=== PATIENT | female | born 1945 | race Caucasian/White ===

== ENCOUNTER 2016-12-21 11:47 | Emergency (ER) | payer OTHER ==
[2016-12-21] MEDS ORDERED: SOLU-MEDROL IM ONE (12:35)
[2016-12-21] MEDS ORDERED: DUONEB (A & A) INH ONE (12:35)
[2016-12-21] MEDS ORDERED: TESSALON PO ONE (12:35)
--- NOTE | 2016-12-21 13:15 | Diag Imaging Result Document ---
PROCEDURE NAME: CHEST-2 VIEWS - 12/21/2016 FRONTAL AND LATERAL CHEST, 2 VIEWS: COMPARISON: Compared to 01/29/2016. FINDINGS: The lungs are well expanded. The heart is not enlarged. The vessels are not distended. There are no infiltrates. No pleural effusions. There are multiple surgical clips in the left axilla and left breast. No lung nodules identified. IMPRESSION: No pneumonia.
--- NOTE | 2016-12-21 13:52 | PROVIDER DOCUMENTATION ---
HPI-Respiratory General - General Chief Complaint: Cough Stated Complaint: COUGHING/WHEEZING Time Seen by Provider: 12/21/16 12:21 Source: patient Allergies/Adverse Reactions: Patient Allergies Allergy/AdvReac Type Severity Reaction Status Date / Time codeine Allergy ITCHING Verified 12/21/16 12:34 diphenhydramine HCl * Allergy ITCHING Verified 12/21/16 12:34 [From Benadryl] Home Medications: Home Medication List Medication Instructions Recorded Confirmed Last Taken Type Albuterol Sulfate Inhaler 2 puff INH Q6H PRN PRN #1 inhaler 01/29/16 12/21/16 Unknown Rx [Ventolin Hfa] Albuterol Sulfate [Albuterol 8.5 gm IH Q4-6H PRN PRN #1 12/21/16 Unknown Rx Sulfate Hfa] hfa.[email or web address] Benzonatate [Tessalon] 100 mg PO TID PRN PRN #20 capsule 12/21/16 Unknown Rx Methylprednisolone [Medrol Dosepak] 4 mg PO DIRECTED #1 package 12/21/16 Unknown Rx - History of Present Illness-Resp Nature of Presenting Problem: This pt presents today c complaints of chronic cough X 1 year. She has had 2 CT scans and PFTs but this persistent cough continues. However, she states that yesterday she was on a trip and there was a lot of dust in the cabin she was in and she believes that this may have caused her cough to worsen. She also reports wheezing but states that this is also chronic. She reports that she just finished a course of antibiotics last week for these symptoms. Denies any CP. No other issues or complaints. Quality of Pain: reports: tightness Severity in ED: reports: moderate Onset/Duration: reports: other (see hpi) Timing: reports: still present Cough Quality/Degree: reports: moderate, dry cough Episode Frequency: chronic episodes Current Respiratory Medication Therapy: Initiated other (symbicort, steroids) Modifying Factors: improves with: exertion, coughing Associated Symptoms: reports: cough, short of breath, wheezing Similar Symptoms Previously?: Yes Recently seen or treated by another doctor?: Yes Review of Systems - Adult - REVIEW OF SYSTEMS - ADULT Constitutional: reports: no symptoms reported. denies: chills, fever Eyes: reports: no symptoms reported. denies: discharge, dry eyes Ears, Nose, Mouth & Throat: reports: no symptoms reported. denies: ear discharge, ear pain Cardiovascular: reports: no symptoms reported. denies: chest pain, edema Respiratory: reports: chronic cough, cough, shortness of breath, wheezing. denies: hemoptysis, pleurisy Gastrointestinal: reports: no symptoms reported. denies: abdominal pain, hematemesis Genitourinary: reports: no symptoms reported. denies: dysuria, discharge Musculoskeletal: reports: no symptoms reported. denies: bone pain, back pain Integumentary: reports: no symptoms reported. denies: hives, hair loss Neurological: reports: no symptoms reported. denies: ataxia, dizziness/vertigo Psychiatric: reports: no symptoms reported. denies: anxiety, anti-depressant use Endocrine: reports: no symptoms reported Hematologic/Lymphatic: reports: no symptoms reported Allergic/Immunologic: reports: no symptoms reported All Other Systems: Reviewed and Negative Past History - Adult - PAST MEDICAL HISTORY-ADULT Review of Records: reports: Old Records Reviewed, Nursing Assessment Review, Medications Reviewed, Social history reviewed & non-contributory. Major Childhood Illnesses: reports: denies history Cardiovascular: reports: HTN, hyperlipidemia Respiratory: reports: denies history Gastrointestinal: reports: denies history Obstetrical/Gynecological: reports: denies history Genitourinary: reports: denies history Musculoskeletal: reports: denies history Neurological: reports: denies history Endocrine/Immune: reports: denies history Other Conditions: reports: other cancer (breast cancer ) - PRIOR SURGERIES/PROCEDURES Surgical/Procedure History: reports: none - IMMUNIZATION STATUS Childhood Immunizations: See Nurse Assessment Flu Vaccine: See Nurse Assessment Physical Exam-General - PHYSICAL EXAM-ADULT Initial Vital Signs Reviewed: Yes - CONSTITUTIONAL General Appearance: alert, mild distress. negative: lethargic, slow to respond - EYES Eyes: PERRL/EOMI, pink conjunctivae - HEAD, EARS, NOSE, MOUTH & THROAT HENMT: normocephalic/atraumatic, moist mucous membranes, normal ENT inspection - NECK Neck: non-tender, full range of motion, supple, normal inspection - RESPIRATORY Respiratory: chest non-tender, no pleuratic chest pain, no accessory muscle use , respiratory distress, decreased breath sounds, accessory muscle use, wheezing , increased rate. negative: crackles, rales, rhonchi, stridor - CARDIOVASCULAR Cardiovascular: normal peripheral pulses, regular rate, rhythm, no edema, no gallop, no JVD, no murmur. negative: bradycardia, tachycardia - GASTROINTESTINAL (ABDOMEN) Abdominal Exam: normal bowel sounds, non tender, soft, no organomegaly, no pulsatile mass - MUSCULOSKELETAL Back Exam: normal inspection, no CVA tenderness, no vertebral tenderness Extremity: normal range of motion, non-tender, normal gait, normal inspection - SKIN Integumentary: normal color, normal turgor, warm/dry - NEUROLOGIC Neurologic: grossly normal, no motor/sensory deficits - PSYCHIATRIC Psych/Mental Status: normal mood/affect, normal thought content, normal thought process, oriented x 3 Progress - PLAN OF CARE/RESULTS Progress/Plan/Lab Results: Orders Category Date Time Status CHEST-2 VIEWS [RAD] Stat Exams 12/21/16 12:23 Draft Albuterol 2.5MG/Ipratrop 0.5MG [Duoneb (A & A)] Med 12/21/16 12:35 Discontinued 3 ml INH NOW ONE Benzonatate [Tessalon] Med 12/21/16 12:35 Discontinued 200 mg PO NOW ONE Methylprednisolone Sod Succ [Solu-Medrol] Med 12/21/16 12:35 Discontinued 80 mg IM NOW ONE Aerosol Treatments Routine Oth 12/21/16 12:35 Completed Aerosol Treatments Stat Oth 12/21/16 12:35 Completed Vital Signs Temp Pulse Resp BP Pulse Ox 12/21/16 13:02 86 16 91 L 12/21/16 11:55 97.7 F 91 H 20 130/68 98 codeine Allergy (Verified 12/21/16 12:34) ITCHING diphenhydramine HCl * [From Benadryl] Allergy (Verified 12/21/16 12:34) ITCHING Albuterol Sulfate Inhaler [Ventolin Hfa] 2 puff INH Q6H PRN PRN #1 inhaler 01/28 Pt is feeling much better. She is now sitting upright in no distress. She does still have some mild expiratory wheezing but symptoms are significantly improved. Currently 100% SaO2 on RA. Her cough is resolved. Will d/c home to f/ u c Dr. Salgado next week. She is in agreement. - XRAY 1 XRAY Study: Chest Comparison with other Films: no changes XRAY Interpretation: stable, nad - CONSULTS/PCP/HOSPITALIST Notification #1 *Consult/PCP/Hospitalist*: Dr. Salgado Time Discussed: 13:52 Consult Disposition: F/U in office Departure - Departure Time of Disposition Order: 13:52 DIAGNOSIS: Chronic coughing, Wheezing Disposition: HOME 01 Certified Medical Emergency: Emergent Condition: Good Additional Instructions: Take medication as prescribed. Follow up with Dr. Salgado next week. Please return to the ER for any new or worsening symptoms. ED Follow Up Instructions: You have been treated by a care provider in the Emergency Department. These instructions are being provided to you so you can have an understanding of how to care for yourself upon discharge. Upon discharge from the Emergency Department, you are responsible for making arrangements for follow-up care by a physician of your choice. Take all prescribed medications as directed. Return to the Emergency Department immediately for any new or worsening symptoms. You may call the Physician Referral phone number at [phone] to obtain a list of Physicians who are taking new patients. Prescriptions: Albuterol Sulfate [Albuterol Sulfate Hfa] 8.5 gm IH Q4-6H PRN PRN #1 hfa.[email or web address] PRN Reason: Wheezing Methylprednisolone [Medrol Dosepak] 4 mg PO DIRECTED #1 package Benzonatate [Tessalon] 100 mg PO TID PRN PRN #20 capsule PRN Reason: Cough Referrals: Lucas Salgado MD [Primary Care Provider] - Attestation - Physician/ JANA Attestation Patient care was provided by Advanced Practice Provider:: Yes Advanced Practice Provider:: Jese Stallworth Advanced Practice Provider documentation review:: The Mid-level provider documentation, treatment plan and medical decision making was reviewed by the physician who agrees with all treatment and medical decision making by the P.
[2016-12-21 14:04] VITALS: BP 114/64
== END 2016-12-21 14:05 | disposition home or self-care (01) ==
LOC: ED 11:47
DX: R05 Cough (principal); R06.2 Wheezing; R06.02 Shortness of breath; I10 Essential (primary) hypertension; E78.5 Hyperlipidemia, unspecified; Z85.3 Personal history of malignant neoplasm of breast
CPT/HCPCS: 71020; 94640; 96372; J2930

== ENCOUNTER 2017-05-08 12:11 | Inpatient (IN) ==
[2017-05-08] MEDS ORDERED: SOLU-MEDROL IV ONE (13:31)
[2017-05-08] MEDS ORDERED: NS NEB INH SCH (13:31)
--- NOTE | 2017-05-08 13:59 | Diag Imaging Result Doc PS360 ---
EXAM: CHEST-2 VIEWS HISTORY: Shortness of breath TECHNIQUE: 12/21/2016 COMPARISON: None. FINDINGS: There are multiple surgical clips overlying the left chest. These were present on the prior exam. The lungs are well expanded. The heart is not enlarged. The vessels are not distended. No pleural effusions. There is increased density in the left apex. IMPRESSION: Increased density in the left apex. Although this may simply be volume averaging, and apical lordotic view is recommended to insure there is no underlying lesion. Electronically signed by Deric Bond 05/08/2017 1:57 PM
[2017-05-08 14:24] LABS: MANUAL DIFF NEEDED? NO
[2017-05-08 14:31] LABS: BASO% 0.7 % (0.0-0.8); EOS# 0.59 X1000 (0.0-0.7); EOS% 7.3 % (0.0-10.0); HEMATOCRIT 43.8 % (37.0-47.0); HEMOGLOBIN 14.5 g/dL (12.0-16.0); IMM GRAN# 0.03 X1000 (0.0-0.04); IMM GRAN% 0.4 % (0.0-0.5); LYMPH# 1.13 X1000 (1.2-3.4); MCHC 33.1 g/dL (33-37); MCV 87.6 FL (81-99); MONO# 0.52 X1000 (0.11-0.59); MONO% 6.5 % (1.7-9.3); MPV 10.2 FL (7.4-10.4); NEUT% 71.1 % (42.2-75.2); PLT 229 X1000 (130-400)
[2017-05-08 15:07] LABS: ALBUMIN 4.2 g/dL (3.5-5.0); CALCIUM 9.7 mg/dL (8.8-10.2); POTASSIUM 4.4 mmol/L (3.5-5.1); TOTAL BILIRUBIN 0.35 mg/dL (0.20-1.00); TOTAL PROTEIN 7.4 g/dL (6.3-8.3)
[2017-05-08] MEDS: ATROVENT NEB INH SCH ×3 (15:17→23:03)
[2017-05-08] MEDS: XOPENEX NEB INH SCH ×3 (15:17→23:03)
--- NOTE | 2017-05-08 15:23 | HISTORY AND PHYSICAL ---
PRIMARY CARE PHYSICIAN: Dr. Lucas Salgado. CHIEF COMPLAINT: Profound shortness of breath. HISTORY OF PRESENT ILLNESS: A 72-year-old white female with past medical history significant for chronic cough with associated asthma, intermittent lower extremity edema, reflux disease, hypertension, hyperlipidemia, left breast cancer, osteoarthritis, and insomnia, who presents for evaluation of above-mentioned symptoms. Current history of present illness began approximately 2 weeks ago. At that time, patient developed acute onset cough, congestion, and wheezing. The patient has attempted interventions since that time including increasing prednisone at 30 mg daily and tapering 10 mg daily until off and increasing frequency of DuoNeb. Unfortunately, despite these interventions, she has developed progressive symptoms. The patient presents to the office today with noted dyspnea. She states she was unable to sleep last night secondary to her profound shortness of breath. She denies fevers, chills, chest pains, palpitations, nausea, and vomiting. Her cough is largely nonproductive. Of note, she did have a sick contact in a nephew approximately 2 weeks ago. Within the last year to 2 years, patient has developed increasing asthmatic symptoms. She has been treated with multiple modalities with intermittent improvement. She currently is followed by Dr. Riddle routinely. Up until this current episode, she had been doing reasonably well. PAST MEDICAL HISTORY: 1. 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 2. Left-sided chest pain status post negative cardiac evaluation in 2008. 3. Chronic cough, likely an asthmatic variant. 4. History of appendectomy associated with her THIERRY/BSO in 1994. 5. Lower extremity edema, intermittent. 6. Reflux disease. 7. Hypertension. 8. Family history of stroke. 9. Family history of coronary artery disease. 10. External hemorrhoids. 11. Hyperlipidemia diagnosed in 1997. 12. 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 Omid Rubio and simultaneous TRAM flap reconstruction by Dr. Barbara Feliciano. The patient developed a recurrence in 2003 and was treated with excision in August and September, followed by XRT in 2004 and chemotherapy. The patient was treated with Arimidex until 2013. 13. Osteoarthritis. 14. Left ovarian cyst status post THIERRY/BSO in 1994. 15. Overweight. 16. History of colonic polyps. 17. History of surgical menopause in 1994. 18. Insomnia. CURRENT MEDICATIONS: 1. Amlodipine 5 mg twice daily. 2. Aspirin 81 mg daily. 3. CoQ10 100 mg daily. 4. Crestor 20 mg at bedtime. 5. DuoNeb 3 times daily as needed. 6. Losartan/hydrochlorothiazide 100/12.5 daily. 7. Nexium 40 mg daily. 8. ProAir HFA as needed. 9. Singulair 10 mg daily. 10. Symbicort 2 puffs twice daily. 11. Zyrtec 10 mg daily. ALLERGIES: Patient states she is allergic to Benadryl which causes a rash, codeine causes a rash, and lisinopril which causes a cough. SOCIAL HISTORY: Patient denies tobacco, alcohol or illicit drug use. 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 She enjoys playing [employer]. She exercises as tolerated. FAMILY HISTORY: Patient's father passed at age 68 secondary to complications of coronary artery bypass grafting. He had a heart attack at age 60, high blood pressure, and hyperlipidemia. Patient's mother passed secondary to complications of lung cancer. She had a history of stroke at age 62. REVIEW OF SYSTEMS: A 12 point review of systems was performed. Pertinent positives and negatives are noted in history present illness. PHYSICAL EXAMINATION: VITAL SIGNS: Temperature 97.8 degrees, heart rate 118, respirations 28, blood pressure is 142/83, O2 saturation 98%. GENERAL: Well nourished, well developed, well developed, in mild respiratory distress. HEENT: Normocephalic, atraumatic. Pupils equal, round, react to light. Extraocular muscles intact. Sclerae anicteric. Guttenberg conjunctivae. Oral and nasopharynx clear without exudate. NECK: Supple. No lymphadenopathy. No thyromegaly. No bruits auscultated. CARDIOVASCULAR: Tachycardic regular rhythm. No significant murmurs, rubs or gallops. PULMONARY: Bilateral wheezing with compromised air movement. ABDOMEN: Soft, nontender. Nondistended positive bowel sounds. EXTREMITIES: Moves all extremities well. No significant clubbing, cyanosis, or edema. DERMATOLOGIC: Evaluation reveals no evidence of rash. LABORATORY DATA: White blood cell count 8.05, hemoglobin 14.5, hematocrit 43.8, platelet count 229,000. CMP and D-dimer are pending. IMAGING: Chest x-ray reveals increased density in the left apex. Although this may simply be volume averaging, an apical lordotic view is recommended to ensure there is no underlying lesion. ASSESSMENT AND PLAN: A 72-year-old, white female with past medical history as noted, who presents for evaluation of profound shortness of breath. On examination, patient does have wheezing bilaterally with compromised air movement. Patient does have a significant history of asthma with multiple exacerbations and chronic cough over the course of the last couple of years. The patient has failed outpatient therapy with bronchodilators and steroids. Patient will be admitted to the hospital for full evaluation and management of this condition. 1. Admit to General Medicine. 2. Acute exacerbation of asthma - As above, patient has failed outpatient therapy. We will initiate IV steroids, bronchodilators, and levofloxacin therapy. We will check blood cultures x2. Will check a sputum culture if able. We will address patient's abnormal CT scan as noted below. We will consult Dr. Riddle as he is aware of patient's case. We will follow her clinical course closely. 3. Hypoxia - In the office, at rest, patient had an oxygen saturation of 90%. We will start patient on oxygen per protocol. We will follow closely. 4. Abnormal chest x-ray - Patient has known scarring in the left apex per previous CT scan. With an increase, I do expect further evaluation is warranted. We will follow up on the D-dimer. We will determine whether a CT scan or CT angiogram is most appropriate. We will plan to order this once further laboratory data is available. 5. Reflux disease - We will continue patient on Nexium therapy. We will ask patient to practice aspiration precautions. We will encourage incentive spirometry q.1 hour while awake. 6. Hypertension - We will continue losartan, hydrochlorothiazide, and amlodipine therapy. We have attempted to discontinue ARB therapy in the past with expectation that this may be exacerbating her cough. Unfortunately this proved ineffective. We will continue this. 7. Hyperlipidemia - We will continue patient on Crestor therapy. 8. Fluid, electrolytes, nutrition - We will monitor electrolytes. Saline lock IV. Regular diet. 9. Prophylaxis - Patient will be placed on subcutaneous Lovenox. cc: Lucas Salgado MD
[2017-05-08 15:35] LABS: ALLEN TEST YES; BE -0.9 mmoll (-3.0-3.0); BLOOD TYPE ARTERIAL; DRAW SITE R RADIAL; METHB 0.6 % (0.0-1.5); O2(CT) 21.1 mL/dL (15.0-23.0); PCO2(98.6) 41 mmHg (35-45); PO2(98.6) 93 mmHg (60-100); SAMPLE BLOOD; SAO2 96.7 % (95.0-100.0); THB 15.6 g/dL (11.5-17.4); pH(98.6) 7.38 (7.35-7.45)
[2017-05-08 15:36] LABS: MODALITY CANNULA
[2017-05-08] MEDS ORDERED: NS 1,000 ML IV SCH (16:38)
[2017-05-08] MEDS: LEVAQUIN 500 MG/D5W 500 MG/100 ML IVPB IV SCH (16:54)
[2017-05-08] MEDS: LOVENOX SUBQ SCH (16:54)
--- NOTE | 2017-05-08 18:46 | Diag Imaging Result Doc PS360 ---
ANGIOGRAM/PULMONARY ARTERIES - 05/08/2017 INDICATION: Shortness of breath/elevated D-dimer/ abnormal CXR TECHNIQUE: Axial CT images were obtained after administering intravenous contrast. Coronal MIP images were generated. A CT dose reduction protocol was used. COMPARISON: 09/11/2016 FINDINGS: There is moderate patient motion artifact. No pulmonary embolism. There is significant chronic bronchitis. There is mucus impaction of several segmental airways in both lower lobes. There is stable pulmonary scarring in the left apex. There is increase in the mild shotty nonspecific mediastinal and bilateral hilar lymph nodes. Heart size is normal. Upper abdominal images are unremarkable. There are some healing lateral right rib fractures, ribs #5 and six. These were not present on the prior exam, but are at least a couple weeks old. IMPRESSION: 1. Negative for pulmonary embolism. 2. Severe chronic bronchitis with mucus impaction of several segmental airways in the lower lobes. 3. Increasing, nonspecific mild mediastinal and hilar adenopathy. 4. Healing right-sided rib fractures. Electronically signed by Ashwin Lopez 05/08/2017 6:44 PM
[2017-05-08] MEDS: SOLU-MEDROL IV SCH (22:00)
[2017-05-08] MEDS: NORVASC PO SCH (22:00)
[2017-05-08] MEDS: TYLENOL PO PRN (22:05)
[2017-05-09] MEDS: XOPENEX NEB INH SCH ×6 (03:25→23:06)
[2017-05-09] MEDS: ATROVENT NEB INH SCH ×6 (03:25→23:06)
--- NOTE | 2017-05-09 04:32 | CONSULTATION ---
DATE OF CONSULTATION: 05/08/2017 REQUESTING PHYSICIAN: Dr. Lucas Salgado. REASON FOR CONSULTATION: Asthma exacerbation. HISTORY OF PRESENT ILLNESS: Ms. Hsu is a 72-year-old white female with cough variant asthma, elevated IgE level (220 international units per mL), history of multiple environmental allergens on immunotherapy, significant eosinophilia when not on steroids (30.5% or 2000 total eosinophils documented on 01/29/2016), who has been followed in my clinic since 02/11/2017. The patient had been maximized on reflux precautions, a leukotriene inhibitor, and an inhaled corticosteroid (higher dose), long-acting beta agonist, an anticholinergic agent, and a short-acting beta agonist. Despite these treatments, patient has recurrent requirements for steroids. The patient is currently being considered for add on therapy such as an anti-IgE antibody treatment or an anti- IL-5 antibody treatment. The patient called Dr. Salgado with a several day history of increased cough and increased shortness of breath. She denies fevers, chills or significant sputum production. PAST MEDICAL HISTORY/PROBLEM LIST: 1. Cough variant asthma, as per above. 2. History of breast cancer x2. 3. Hypertension. 4. Gastroesophageal reflux. 5. Spinal stenosis. 6. Sleep apnea. 7. Status post hysterectomy. 8. Status post appendectomy. 9. Hypertension. 10. Dyslipidemia. 11. Osteoarthritis. SOCIAL HISTORY: She is a never smoker. Does not use recreational drugs. No alcohol use. 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 She has never been exposed to tuberculosis. FAMILY HISTORY: Positive for lung cancer and coronary artery disease. REVIEW OF SYSTEMS: As noted in the HPI. PHYSICAL EXAMINATION: General: Reveals a well-developed, well-nourished white female, resting comfortably. She does appear to be breathless with excessive talking. Vital Signs: Blood pressure 130/64, heart rate 95, respiration rate 20, oxygen saturation 95% on 2 L. HEENT: Pupils are equal and reactive. Oropharynx is clear. Neck: Supple. Chest: Reveals diminished breath sounds, with wheezing on forced exhalation. Cardiac: Regular rate. Normal S1, normal S2. Abdomen: Soft, without hepatosplenomegaly. Extremities: Without edema. LABORATORY STUDIES: Arterial blood gas on 2 L per nasal cannula reveals an increase in Aa gradient at 55, with a pH of 7.38, pCO2 of 41, PO2 of 93. White blood count 8.05, hemoglobin 14.5, platelet count 229,000. Eosinophil percentage 7.3% (patient is on steroids). CT scan of the thorax reveals mucous impaction consistent with asthma exacerbation. No evidence of pulmonary emboli. Mild nonspecific scarring in the left apex, unchanged from 09/11/2016. Nonspecific mediastinal adenopathy. IMPRESSION: A 72-year-old with severe allergic asthma, with elevated IgE levels and elevated eosinophil levels. She has had recurrent steroids despite maximizing her treatment. The patient has been off steroids for less than 2 weeks, and has had another exacerbation. With her elevated IgE level and her allergic asthma, she will likely qualify for an IgE antibody treatment (e.g. Xolair). With her elevated eosinophilic counts, an anti-IL-5 treatment will also be considered (Nucala). PLAN: 1. Continue to treat for asthma exacerbation with nebulizer treatments and IV steroids. 2. Anticipate the addition of an add on therapy, as outlined above. cc: MD Lucas Ramos MD
[2017-05-09] MEDS: SOLU-MEDROL IV SCH ×3 (05:40→21:36)
[2017-05-09 05:59] LABS: MANUAL DIFF NEEDED? NO
[2017-05-09 06:07] LABS: BASO% 0.1 % (0.0-0.8); EOS# 0.01 X1000 (0.0-0.7); EOS% 0.1 % (0.0-10.0); HEMATOCRIT 43.5 % (37.0-47.0); HEMOGLOBIN 14.6 g/dL (12.0-16.0); IMM GRAN# 0.02 X1000 (0.0-0.04); IMM GRAN% 0.3 % (0.0-0.5); LYMPH# 1.01 X1000 (1.2-3.4); LYMPH% 13.4 % (20.5-51.1); MCHC 33.6 g/dL (33-37); MCV 86.5 FL (81-99); MONO# 0.15 X1000 (0.11-0.59); NEUT% 84.1 % (42.2-75.2); PLT 219 X1000 (130-400); RBC 5.03 XMIL (4.2-5.4)
[2017-05-09] MEDS: ASPIRIN PO SCH (10:46)
[2017-05-09] MEDS: COENZYME Q10 PO SCH (10:46)
[2017-05-09] MEDS: SINGULAIR PO SCH (10:46)
[2017-05-09] MEDS: HYZAAR 100/12.5 MG TAB PO SCH (10:46)
[2017-05-09] MEDS: ZYRTEC PO SCH (10:46)
[2017-05-09] MEDS: NEXIUM PO SCH (10:46)
[2017-05-09] MEDS: LEVAQUIN 500 MG/D5W 500 MG/100 ML IVPB IV SCH (14:43)
[2017-05-09] MEDS: LOVENOX SUBQ SCH (14:43)
[2017-05-09] MEDS: NORVASC PO SCH (21:39)
[2017-05-10] MEDS: ATROVENT NEB INH SCH ×5 (03:37→21:32)
[2017-05-10] MEDS: XOPENEX NEB INH SCH ×6 (03:38→23:07)
[2017-05-10] MEDS: TYLENOL PO PRN ×2 (04:23→22:43)
[2017-05-10] MEDS: SOLU-MEDROL IV SCH ×2 (06:06→19:15)
[2017-05-10] MEDS: NEXIUM PO SCH (11:30)
[2017-05-10] MEDS: SINGULAIR PO SCH (11:31)
[2017-05-10] MEDS: HYZAAR 100/12.5 MG TAB PO SCH (11:31)
[2017-05-10] MEDS: ZYRTEC PO SCH (11:31)
[2017-05-10] MEDS: COENZYME Q10 PO SCH (11:31)
[2017-05-10] MEDS: ASPIRIN PO SCH (11:31)
[2017-05-10] MEDS: LEVAQUIN 500 MG/D5W 500 MG/100 ML IVPB IV SCH (18:57)
[2017-05-10] MEDS: LOVENOX SUBQ SCH (18:59)
[2017-05-10] MEDS: NORVASC PO SCH (20:50)
[2017-05-11] MEDS: SOLU-MEDROL IV SCH ×3 (02:44→18:16)
[2017-05-11] MEDS: ATROVENT NEB INH SCH ×5 (03:24→21:39)
[2017-05-11] MEDS: XOPENEX NEB INH SCH ×6 (03:25→23:27)
[2017-05-11] MEDS: ZYRTEC PO SCH (08:35)
[2017-05-11] MEDS: HYZAAR 100/12.5 MG TAB PO SCH (08:35)
[2017-05-11] MEDS: COENZYME Q10 PO SCH (08:35)
[2017-05-11] MEDS: ASPIRIN PO SCH (08:35)
[2017-05-11] MEDS: NEXIUM PO SCH (08:35)
[2017-05-11] MEDS: SINGULAIR PO SCH (08:35)
[2017-05-11] MEDS ORDERED: DULCOLAX PR PRN ×2 (09:17→09:21)
[2017-05-11] MEDS ORDERED: MILK OF MAGNESIA PO ONE (09:17)
[2017-05-11] MEDS: COLACE PO PRN (09:42)
[2017-05-11] MEDS: MAG-OX PO SCH ×2 (09:42→20:39)
[2017-05-11] MEDS: LOVENOX SUBQ SCH (14:20)
[2017-05-11] MEDS: LEVAQUIN 500 MG/D5W 500 MG/100 ML IVPB IV SCH (14:20)
[2017-05-11] MEDS: NORVASC PO SCH (20:39)
[2017-05-12] MEDS: XOPENEX NEB INH SCH ×6 (03:19→23:15)
[2017-05-12] MEDS: ATROVENT NEB INH SCH ×4 (03:19→21:34)
[2017-05-12] MEDS: SOLU-MEDROL IV SCH ×3 (05:50→21:46)
[2017-05-12 06:34] LABS: AGAP 13; BUN 24 mg/dL (8-22); CALCIUM 9.7 mg/dL (8.8-10.2); CHLORIDE 93 mmol/L (98-107); COSMO 270; MAGNESIUM 2.4 mg/dL (1.5-2.7); POTASSIUM 4.1 mmol/L (3.5-5.1); SODIUM 132 mmol/L (136-145); TCO2 26 mmol/L (25-35)
[2017-05-12] MEDS: MAG-OX PO SCH ×2 (08:33→21:46)
[2017-05-12] MEDS: ZYRTEC PO SCH (08:34)
[2017-05-12] MEDS: ASPIRIN PO SCH (08:34)
[2017-05-12] MEDS: SINGULAIR PO SCH (08:34)
[2017-05-12] MEDS: NEXIUM PO SCH (08:34)
[2017-05-12] MEDS: COENZYME Q10 PO SCH (08:34)
[2017-05-12] MEDS: HYZAAR 100/12.5 MG TAB PO SCH (08:35)
--- NOTE | 2017-05-12 09:08 | PROGRESS NOTE ---
DATE: 05/12/2017 SUBJECTIVE: Ms. Hsu is feeling better and breathing better, even better than yesterday. Still has nasal cannula on, sitting up in a chair, comfortable. OBJECTIVE: Temperature is 98.7, pulse 84, respirations 18, blood pressure 103/53. Lungs: Clear in all lung valenzuela. Cardiovascular: Regular rate and rhythm without murmur or S3. Abdomen: Soft. Skin: Warm and dry. Urine output was 1400 mL. DIAGNOSTIC DATA: White count is 7550, hematocrit 43, platelet count 219,000. Chemistry shows sodium 132, potassium 4.1, chloride 93, bicarb 26, BUN is 24, creatinine 0.9. B12 was 1246. ASSESSMENT AND PLAN: 1. Elevated IgE level, elevated eosinophil level, current steroids. She has had recurrent steroids despite maximizing treatment. The patient has been off steroids for 2 weeks, had another exacerbation with elevated IgE level and her allergic asthma. She would like qualify for some IgE antibiotic treatment which Dr. Riddle is pursuing. Clinically much better, comfortable breathing, moving air better. Hopefully home soon. We will see if we can wean her off her O2. 2. Review of her orders, I do not see any change. cc: MD Lucas Mcfarland MD
--- NOTE | 2017-05-12 09:44 | PROGRESS NOTE ---
DATE: 05/11/2017 SUBJECTIVE: She states she is breathing better but not back to where she needs to be yet. OBJECTIVE: Her temperature is 98.0 degrees, pulse 94, respirations 18, blood pressure 110/63. Lungs are clear in all lung valenzuela, anterolateral. No wheezing. No prolongation of expiratory phase at this point. Abdomen soft, nontender, nondistended. Skin is warm and dry. Urine output is 2200. LABORATORY DATA: White count 7550, hematocrit 43, platelet count 219,000. I reviewed electrolytes from 05/08/2017. Note that tryptase was drawn and it was 5.7, so it was less than 11. ASSESSMENT AND PLAN: 1. A 72-year-old with allergic asthma, elevated IgE levels, and elevated eosinophils levels. She has had recurrent steroids despite maximizing her treatment, and she has had a recurrence even though on maximum steroids. She has been off steroids for less than 2 weeks and other exacerbation. Elevated IgE level and allergic asthma qualify for an IgE antibody treatment, Xolair, and considering nuclear per Dr. Riddle. On review of her orders, I do not see any change at this point. She is on coenzyme Q10 or ubidecarenone, and she is taking 100 mg daily. She is on Singulair 10 mg a day, Methylprednisone 40 mg IV q. 8, Hyzaar and hydrochlorothiazide combination. She has taken 100-12.5 one a day. She is on Levaquin 500 mg IV daily, levalbuterol nebulizer, ipratropium nebulizer, Zyrtec 10 mg daily, aspirin 81 mg a day, Norvasc 5 mg at bedtime. 2. Complains of constipation, so we will see if we can put her back. We will give her some Milk of Magnesia. I think she was taking some stool softeners at home. We will see if we can put her on some Colace twice a day and add Milk of Magnesia. cc: MD Lucas Mcfarland MD
[2017-05-12] MEDS: COLACE PO PRN (09:50)
[2017-05-12] MEDS: LOVENOX SUBQ SCH (12:52)
[2017-05-12] MEDS: LEVAQUIN 500 MG/D5W 500 MG/100 ML IVPB IV SCH (12:52)
[2017-05-12] MEDS: NORVASC PO SCH (21:47)
[2017-05-13] MEDS: XOPENEX NEB INH SCH ×6 (03:45→23:12)
[2017-05-13] MEDS: ATROVENT NEB INH SCH ×4 (03:45→19:18)
[2017-05-13] MEDS: SOLU-MEDROL IV SCH (05:11)
[2017-05-13] MEDS: HYZAAR 100/12.5 MG TAB PO SCH (09:18)
[2017-05-13] MEDS: ZYRTEC PO SCH (09:18)
[2017-05-13] MEDS: COENZYME Q10 PO SCH (09:18)
[2017-05-13] MEDS: ASPIRIN PO SCH (09:19)
[2017-05-13] MEDS: NEXIUM PO SCH (09:19)
[2017-05-13] MEDS: MAG-OX PO SCH ×2 (09:19→20:59)
[2017-05-13] MEDS: SINGULAIR PO SCH (09:19)
[2017-05-13] MEDS: LEVAQUIN 500 MG/D5W 500 MG/100 ML IVPB IV SCH (14:06)
[2017-05-13] MEDS: TESSALON PO SCH ×2 (14:06→19:53)
[2017-05-13] MEDS: LOVENOX SUBQ SCH (14:06)
[2017-05-13] MEDS ORDERED: ROBITUSSIN PO PRN (18:26)
[2017-05-13] MEDS: NORVASC PO SCH ×2 (20:59→21:00)
[2017-05-13] MEDS ORDERED: PREDNISONE PO SCH (21:00)
[2017-05-14] MEDS: XOPENEX NEB INH SCH ×5 (03:49→19:29)
[2017-05-14] MEDS: ATROVENT NEB INH SCH ×4 (03:49→15:15)
[2017-05-14] MEDS ORDERED: PREDNISONE PO ONE (08:35)
[2017-05-14] MEDS: TESSALON PO SCH ×2 (08:42→15:03)
[2017-05-14] MEDS: COENZYME Q10 PO SCH (08:42)
[2017-05-14] MEDS: MAG-OX PO SCH (08:42)
[2017-05-14] MEDS: ASPIRIN PO SCH (08:42)
[2017-05-14] MEDS: NEXIUM PO SCH (08:43)
[2017-05-14] MEDS: ZYRTEC PO SCH (08:43)
[2017-05-14] MEDS: SINGULAIR PO SCH (08:43)
[2017-05-14] MEDS: HYZAAR 100/12.5 MG TAB PO SCH (11:37)
[2017-05-14] MEDS: LEVAQUIN 500 MG/D5W 500 MG/100 ML IVPB IV SCH (12:53)
[2017-05-14] MEDS: LOVENOX SUBQ SCH ×2 (12:53→15:02)
[2017-05-14 15:31] VITALS: BP 107/52
--- NOTE | 2017-05-14 23:39 | DISCHARGE SUMMARY ---
ADMISSION DATE: 05/08/2017 DISCHARGE DATE: 05/14/2017 ADMISSION DIAGNOSIS: Shortness of breath. DISCHARGE DIAGNOSES: 1. Acute exacerbation of asthma, outpatient failure. 2. Hypoxia, resolved. 3. Reflux disease, present on arrival. 4. Hypertension, present on arrival. 5. Hyperlipidemia, present on arrival. CONSULTATIONS: Dr. Riddle with Pulmonary Medicine was consulted for further evaluation and management of acute exacerbation of chronic asthma. PROCEDURES: A CT pulmonary angiogram was performed on 05/08/2017 which revealed negative for pulmonary embolism. Severe chronic bronchitis with mucus impaction of several segmental airways in the lower lobes. Increasing, nonspecific mild mediastinal and hilar adenopathy. Healing right- sided rib fractures. HISTORY AND PHYSICAL EXAMINATION: See admit note. PHYSICAL EXAMINATION PRIOR TO DISCHARGE: Vital Signs: Temperature 98.2 degrees, heart rate 91, respirations 24, blood pressure is 107/52. General: Well nourished, well developed, in no acute distress. Cardiovascular: Regular rate and rhythm. No significant murmurs, rubs, or gallops. Pulmonary: Occasional wheeze, adequate air movement. Abdomen: Soft, nontender, nondistended. Positive bowel sounds. Extremities: Moves all extremities well. No significant clubbing, cyanosis, or edema. Skin: Dermatologic evaluation reveals no evidence of rash. LABORATORY DATA PRIOR TO DISCHARGE: None. HOSPITAL COURSE: The patient was admitted as per history and physical examination. Hospital course per condition is as follows. 1. Acute exacerbation of chronic asthma-the patient has developed significant asthmatic symptoms over the course of the last 1-2 years. Patient is followed as an outpatient by Dr. Riddle. She has been treated with optimum medical management. Unfortunately, patient developed significant shortness of breath. Despite aggressive outpatient intervention, she required inpatient hospitalization. Her course was prolonged secondary to a slow response. She was initially placed on bronchodilators, IV levofloxacin and IV Solu-Medrol. Over the course of hospitalization, patient's steroids were slowly tapered. At time of discharge, patient was tolerating p.o. Patient will be discharged on aggressive of prednisone taper with 60 mg for 3 days followed by 50 mg for 3 days, followed by 40 mg daily for 3 days, followed by 30 mg daily for 3 days, followed by 20 mg daily. Patient will be followed closely as an outpatient by Dr. Riddle. At present time, arrangements for Xolair are being pursued. 2. Hypoxia-upon admission, patient was noted to have hypoxia at rest. Patient was treated with oxygen therapy throughout hospitalization. At time of discharge her oxygenation was adequate on room air. This will be followed as an outpatient as well. 3. Reflux disease-patient was continued on Nexium therapy while hospitalized. She tolerated this well. 4. Hypertension-patient's blood pressure remains adequately controlled with her current regimen while hospitalized. 5. Hyperlipidemia-patient was continued on Crestor therapy. 6. Weakness/fatigue-this likely is secondary to her acute illness. For now, we will follow. DISCHARGE CONDITION: Good. DISPOSITION: Discharge to home. MEDICATIONS: 1. Acetaminophen 650 mg every 4 hours as needed. 2. Aspirin 81 mg daily. 3. Z-Pillo as directed. 4. Zyrtec 10 mg daily. 5. Colace 100 mg twice daily as needed. 6. Losartan/hydrochlorothiazide 100/12.5 daily. 7. Magnesium oxide 800 mg twice daily. 8. Singulair 10 mg daily. 9. Coenzyme Q10 100 mg daily. 10. Mucinex DM twice daily. 11. Amlodipine 5 mg at bedtime. 12. Prednisone taper starting 60 mg for 3 days decreasing 10 mg every 3 days until 20 mg daily is reached and thereafter, she will continue 20 mg daily. FOLLOWUP: The patient to follow with me in 1-2 weeks. cc: Lucas Salgado MD
[2017-05-15] MEDS ORDERED: PREDNISONE PO SCH (09:00)
== END 2017-05-14 20:00 | disposition home or self-care (01) ==
LOC: DIRADM 12:11 → 4N 13:19
PROVIDERS: ADMIT Internal Medicine; ATTEND Internal Medicine

== ENCOUNTER 2019-04-04 17:45 | Inpatient (IN) ==
[2019-04-04] MEDS ORDERED: NS 1,000 ML IV ONE ×3 (18:11→18:12)
--- NOTE | 2019-04-04 18:45 | Diag Imaging Result Doc PS360 ---
EXAM: CHEST-2 VIEWS HISTORY: fever TECHNIQUE: Chest two views COMPARISON: 05/08/2017 FINDINGS: The lungs are well expanded. The heart is not enlarged. The vessels are not distended. There are no infiltrates. No pleural effusions. There are surgical clips in the left axilla. No change in the scarring in the left apex. No lung nodules identified. IMPRESSION: No pneumonia. Electronically signed by Deric Bond 04/04/2019 6:43 PM
--- NOTE | 2019-04-04 18:53 | PROVIDER DOCUMENTATION ---
This chart was entered by Connie Sapp Scribe, acting as scribe for Bg Setphens DO. HPI-General Adult - General Source: patient - History of Present Illness -Gen Adult Nature of Presenting Problems: Pt is 74/F presenting to ED w/ fever that has been present for the last 2 days, it has run up to 104.5 at home and has been somewhat controlled w/ Tylenol. Pt sts that the only other symptoms she has had has been a runny nose. Location of Pain/Injury: reports: generalized Pain Radiation: reports: no radiation Quality of Pain: reports: none Severity: reports: mild Onset/Duration: reports: 2 days ago Timing: reports: still present Context/Activities at Onset: reports: none Modifying Factors: improves with: nothing Associated Symptoms: reports: cough, EENT symptoms, fever/chills. denies: back/neck pain, nausea, vomiting Similar Symptoms Previously?: No Recently seen or treated by another doctor?: No <Bg Stephens - Last Filed: 04/04/19 18:52> <Dawn Fofana - Last Filed: 04/04/19 22:53> - General Chief Complaint: Fever Stated Complaint: WEAKNESS,DIZZINESS Time Seen by Provider: 04/04/19 17:59 Allergies/Adverse Reactions: Patient Allergies Allergy/AdvReac Type Severity Reaction Status Date / Time codeine Allergy ITCHING Verified 12/21/16 12:34 diphenhydramine HCl * Allergy ITCHING Verified 12/21/16 12:34 [From [facility]] Home Medications: Home Medication List Medication Instructions Recorded Confirmed Last Taken Type Acetaminophen [Tylenol] 650 mg PO Q4H PRN PRN #0 tablet 05/14/17 Unknown Rx Amlodipine [Norvasc] 5 mg PO QHS tablet 05/14/17 Unknown Rx Aspirin 81 mg PO DAILY chewtab 05/14/17 Unknown Rx Azithromycin [Zithromax Z-Pillo] 250 mg PO DIRECTED #1 pkg 05/14/17 Unknown Rx Cetirizine [Zyrtec] 10 mg PO DAILY tablet 05/14/17 Unknown Rx Docusate Sodium [Colace] 100 mg PO BID PRN PRN #0 capsule 05/14/17 Unknown Rx Guaifenesin/Dm E.r. [Mucinex Dm] 1 each PO BID #1 tablet 05/14/17 Unknown Rx Losartan/Hctz [Hyzaar 100/12.5 mg 1 each PO DAILY tablet 05/14/17 Unknown Rx Tab] Magnesium Oxide [Mag-Ox] 800 mg PO BID tablet 05/14/17 Unknown Rx Montelukast [Singulair] 10 mg PO DAILY tablet 05/14/17 Unknown Rx Prednisone See Taper PO DIRECTED #45 tablet 05/14/17 Unknown Rx Ubidecarenone [Coenzyme Q10] 100 mg PO DAILY capsule 05/14/17 Unknown Rx Review of Systems - Adult - REVIEW OF SYSTEMS - ADULT Constitutional: reports: chills, fever Eyes: reports: no symptoms reported Ears, Nose, Mouth & Throat: reports: no symptoms reported Cardiovascular: reports: no symptoms reported. denies: chest pain Respiratory: reports: cough. denies: shortness of breath, wheezing Gastrointestinal: reports: no symptoms reported. denies: abdominal pain, nausea, vomiting Genitourinary: reports: no symptoms reported Musculoskeletal: reports: no symptoms reported Integumentary: reports: no symptoms reported Neurological: denies: dizziness/vertigo, headache/migraines Psychiatric: reports: no symptoms reported Endocrine: reports: no symptoms reported Hematologic/Lymphatic: reports: no symptoms reported Allergic/Immunologic: reports: no symptoms reported All Other Systems: Reviewed and Negative <Bg Stephens - Last Filed: 04/04/19 18:52> Past History - Adult - PAST MEDICAL HISTORY-ADULT Review of Records: reports: Old Records Reviewed, Nursing Assessment Review, Medications Reviewed, Social history reviewed & non-contributory. Major Childhood Illnesses: reports: denies history Cardiovascular: reports: HTN, hyperlipidemia Respiratory: reports: denies history Gastrointestinal: reports: denies history Obstetrical/Gynecological: reports: denies history Genitourinary: reports: denies history Musculoskeletal: reports: denies history Neurological: reports: denies history Endocrine/Immune: reports: denies history Other Conditions: reports: other cancer (breast cancer ) - PRIOR SURGERIES/PROCEDURES Surgical/Procedure History: reports: none - IMMUNIZATION STATUS Childhood Immunizations: See Nurse Assessment Flu Vaccine: See Nurse Assessment - SOCIAL HISTORY Smoking: denies, non-smoker Substance Use: none/never Alcohol Use Frequency: never Living Situation: family <Bg Stephens - Last Filed: 04/04/19 18:52> Physical Exam-General - PHYSICAL EXAM-ADULT Initial Vital Signs Reviewed: Yes - CONSTITUTIONAL General Appearance: appears well, alert, no apparent distress - EYES Eyes: PERRL/EOMI, pink conjunctivae - HEAD, EARS, NOSE, MOUTH & THROAT HENMT: normocephalic/atraumatic, moist mucous membranes, normal ENT inspection, TMs normal, pharynx normal - NECK Neck: non-tender, full range of motion, supple, normal inspection - RESPIRATORY Respiratory: lungs clear - CARDIOVASCULAR Cardiovascular: regular rate, rhythm - GASTROINTESTINAL (ABDOMEN) Abdominal Exam: normal bowel sounds, non tender, soft - LYMPHATIC Lymphatic: no adenopathy - MUSCULOSKELETAL Back Exam: normal inspection, no CVA tenderness, no vertebral tenderness Extremity: normal range of motion, non-tender, normal gait, normal inspection - SKIN Integumentary: warm/dry - NEUROLOGIC Neurologic: grossly normal - PSYCHIATRIC Psych/Mental Status: normal mood/affect, normal thought content, normal thought process, oriented x 3 <Bg Stephens - Last Filed: 04/04/19 18:52> Progress - PLAN OF CARE/RESULTS Progress/Plan/Lab Results: Vital Signs - 8 hr 04/04/19 17:50 Temperature 100.5 F H Pulse Rate 112 H Respiratory Rate 26 H Blood Pressure 81/52 O2 Sat by Pulse Oximetry 90 L - CHANGE OF SHIFT REPORT (ED Provider) 1 Report Given and Care Transferred to:: Dr. Fofana Time of Transfer: 17:00 <Bg Stephens - Last Filed: 04/04/19 18:52> - PLAN OF CARE/RESULTS Progress/Plan/Lab Results: Vital Signs - 8 hr 04/04/19 17:50 Temperature 100.5 F H Pulse Rate 112 H Respiratory Rate 26 H Blood Pressure 81/52 O2 Sat by Pulse Oximetry 90 L 04/04/19 19:50 Influenza Screen - Final Nasopharyngeal Laboratory Results - last 24 hr 04/04/19 04/04/19 04/04/19 19:20 19:35 19:35 WBC 10.03 RBC 4.73 Hgb 13.6 Hct 40.0 MCV 84.6 MCH 28.8 MCHC 34.0 RDW Std Deviation 15.0 H Plt Count 137 MPV 11.0 H Immature Gran % (Auto) 1.3 H Neut % (Auto) 83.6 H Lymph % (Auto) 7.1 L Waldo % (Auto) 7.1 Eos % (Auto) 0.8 Baso % (Auto) 0.1 Immature Gran # (Auto) 0.13 H Neut # (Auto) 8.39 H Lymph # (Auto) 0.71 L Waldo # (Auto) 0.71 H Eos # (Auto) 0.08 Baso # (Auto) 0.01 PT INR PTT (Actin FS) Sodium 135 L Potassium 3.4 L Chloride 101 Carbon Dioxide 22 L Anion Gap 12 BUN 36 H Creatinine 1.7 H Estimated GFR/1.73 m2 29 BUN/Creatinine Ratio 21 Glucose 118 H Calculated Osmolality 280 Calcium 9.0 Total Bilirubin 0.69 AST 19 ALT 17 Alkaline Phosphatase 126 H Creatine Kinase Troponin T Total Protein 6.3 Albumin 3.2 L Globulin 3.1 Albumin/Globulin Ratio 1.0 Plasma Lactate Urine Source CLEAN CATCH Urine Color YELLOW Urine Turbidity HAZY Urine pH 6.5 Ur Specific Chester 1.008 Urine Protein 50 A Ur Glucose (Stick) NEGATIVE Ur Ketones (Stick) NEGATIVE Urine Blood SMALL A Urine Nitrite POSITIVE A Urine Bilirubin NEGATIVE Urobilinogen Dipstick NORMAL Urine Leukocytes LARGE A Urine WBC (Auto) TNTC A Urine RBC (Auto) <10 U Epithel Cells (Auto) <10 Urine Bacteria (Auto) 4+ 04/04/19 04/04/19 04/04/19 19:35 19:35 19:35 WBC RBC Hgb Hct MCV MCH MCHC RDW Std Deviation Plt Count MPV Immature Gran % (Auto) Neut % (Auto) Lymph % (Auto) Waldo % (Auto) Eos % (Auto) Baso % (Auto) Immature Gran # (Auto) Neut # (Auto) Lymph # (Auto) Waldo # (Auto) Eos # (Auto) Baso # (Auto) PT 14.0 INR 1.00 PTT (Actin FS) 28.7 Sodium Potassium Chloride Carbon Dioxide Anion Gap BUN Creatinine Estimated GFR/1.73 m2 BUN/Creatinine Ratio Glucose Calculated Osmolality Calcium Total Bilirubin AST ALT Alkaline Phosphatase Creatine Kinase 43 Troponin T Total Protein Albumin Globulin Albumin/Globulin Ratio Plasma Lactate 1.5 Urine Source Urine Color Urine Turbidity Urine pH Ur Specific Chester Urine Protein Ur Glucose (Stick) Ur Ketones (Stick) Urine Blood Urine Nitrite Urine Bilirubin Urobilinogen Dipstick Urine Leukocytes Urine WBC (Auto) Urine RBC (Auto) U Epithel Cells (Auto) Urine Bacteria (Auto) 04/04/19 19:35 WBC RBC Hgb Hct MCV MCH MCHC RDW Std Deviation Plt Count MPV Immature Gran % (Auto) Neut % (Auto) Lymph % (Auto) Waldo % (Auto) Eos % (Auto) Baso % (Auto) Immature Gran # (Auto) Neut # (Auto) Lymph # (Auto) Waldo # (Auto) Eos # (Auto) Baso # (Auto) PT INR PTT (Actin FS) Sodium Potassium Chloride Carbon Dioxide Anion Gap BUN Creatinine Estimated GFR/1.73 m2 BUN/Creatinine Ratio Glucose Calculated Osmolality Calcium Total Bilirubin AST ALT Alkaline Phosphatase Creatine Kinase Troponin T < 0.010 Total Protein Albumin Globulin Albumin/Globulin Ratio Plasma Lactate Urine Source Urine Color Urine Turbidity Urine pH Ur Specific Chester Urine Protein Ur Glucose (Stick) Ur Ketones (Stick) Urine Blood Urine Nitrite Urine Bilirubin Urobilinogen Dipstick Urine Leukocytes Urine WBC (Auto) Urine RBC (Auto) U Epithel Cells (Auto) Urine Bacteria (Auto) Orders Category Date Time Status Cardiac Monitoring DIRECTED Care 04/04/19 18:09 Active IV Insertion ORDERED Care 04/04/19 18:09 Active Notify MD of + Sepsis Screen NOW Care 04/04/19 18:09 Active Notify Physician As Ordered Care 04/04/19 18:09 Active CHEST-2 VIEWS [RAD] Stat Exams 04/04/19 18:07 Completed BLOOD CULTURE [BLDCUL] Stat Lab 04/04/19 19:35 Results CBC WITH ELECTRONIC DIFF [HEME] Stat Lab 04/04/19 19:35 Completed CK PROFILE [SP CHEM] Stat Lab 04/04/19 19:35 Completed COMPREHENSIVE METABOLIC PANEL [CHEM] Stat Lab 04/04/19 19:35 Completed INFLUENZA SCREEN A/B Stat Lab 04/04/19 19:50 Completed LACTATE, PLASMA [CHEM] Lab 04/04/19 21:15 Uncollected LACTATE, PLASMA [CHEM] Lab 04/05/19 00:15 Uncollected LACTATE, PLASMA [CHEM] Q3H Lab 04/04/19 19:35 Completed PROTIME WITH INR [COAG] Stat Lab 04/04/19 19:35 Completed PTT [COAG] Stat Lab 04/04/19 19:35 Completed TROPONIN T Stat Lab 04/04/19 19:35 Completed UA NIMS W/REFLEX CULT [URINALYSIS] Stat Lab 04/04/19 19:20 Completed 0.9% Sodium Chloride Inj [Ns] 1,000 ml Med 04/04/19 18:11 Discontinued IV 999 mls/hr 0.9% Sodium Chloride Inj [Ns] 1,000 ml Med 04/04/19 18:11 Discontinued IV 999 mls/hr 0.9% Sodium Chloride Inj [Ns] 1,000 ml Med 04/04/19 18:12 Discontinued IV 999 mls/hr Acetaminophen [Tylenol] Med 04/04/19 22:21 Discontinued 1,000 mg PO NOW ONE CefTRIAXONE [Rocephin] 1 gm Med 04/04/19 22:43 Active 0.9% Sodium Chloride Inj [Ns] 50 ml IV NOW Oxygen Device Stat Oth 04/04/19 18:09 Active Patient signed out to me at shift change pending labs and dispo. Patient with UTI, RIVERA and slight hypokalemia. LA normal. Repeat pending. GIven 3L NS in the ED. Spoke to patient about admission and agrees. Spoke to Dr Schulte who accepted patient for admission. Further orders to be placed by hospitalist team Result Diagrams: 04/04/19 19:35 04/04/19 19:35 - CONSULTS/PCP/HOSPITALIST Notification #1 *Consult/PCP/Hospitalist*: Dr Schulte Time Discussed: 22:49 Consult Disposition: Admit <Dawn Fofana - Last Filed: 04/04/19 22:53> Departure <Bg Stephens - Last Filed: 04/04/19 18:52> - Departure Date of Disposition Decision: 04/04/19 Time of Disposition Decision: 22:49 Certified Medical Emergency: Emergent - Critical Care Note This patient required my direct & personal management of CC.: Yes Total Time (mins): 75 Critical Care Statement: This patient required my direct personal management to treat or rule out processes, the absence of which, could potentiallly result in sudden, clinically significant life or limb threatening deterioration. <Dawn Fofana - Last Filed: 04/04/19 22:53> - Departure DIAGNOSIS: Hypokalemia, RIVERA (acute kidney injury), Sepsis UTI (urinary tract infection) Qualifiers: Urinary tract infection type: acute cystitis Hematuria presence: without hematuria Qualified Code(s): N30.00 - Acute cystitis without hematuria Fever Qualifiers: Encounter type: initial encounter Disposition: ADMITTED INPATIENT 09 Condition: Stable Referrals and Follow-Ups: Lucas Salgado MD [Primary Care Provider] - Attestation - Physician/ JANA Attestation Patient care was provided by Advanced Practice Provider:: No The physician spent face to face time with patient:: Yes Advanced Practice Provider documentation review:: Supervising physician onsite and consulted in the evaluation and care of this patient. The physician did have a face to face encounter with the patient. <Bg Stephens - Last Filed: 04/04/19 18:52> This chart was documented by the indicated scribe, (Connie Sapp, Curt) and accurately reflects the services I performed and decisions made by , Bg Stephens, , as attested by the provider's signature.
[2019-04-04 20:11] LABS: ALBUMIN 3.2 g/dL (3.5-5.0); CREATININE 1.7 mg/dL (0.5-0.9); POTASSIUM 3.4 mmol/L (3.5-5.1); TOTAL BILIRUBIN 0.69 mg/dL (0.20-1.00); TOTAL PROTEIN 6.3 g/dL (6.3-8.3)
[2019-04-04 20:13] LABS: BASO# 0.01 X1000 (0.0-0.2); BASO% 0.1 % (0.0-0.8); EOS# 0.08 X1000 (0.0-0.7); EOS% 0.8 % (0.0-10.0); HEMOGLOBIN 13.6 g/dL (12.0-16.0); IMM GRAN# 0.13 X1000 (0.0-0.04); IMM GRAN% 1.3 % (0.0-0.5); LYMPH# 0.71 X1000 (1.2-3.4); LYMPH% 7.1 % (20.5-51.1); MCH 28.8 PG (27-31); MCV 84.6 FL (81-99); MONO# 0.71 X1000 (0.11-0.59); MONO% 7.1 % (1.7-9.3); NEUT# 8.39 X1000 (1.4-6.5); NEUT% 83.6 % (42.2-75.2); PLT 137 X1000 (130-400); RBC 4.73 XMIL (4.2-5.4); WBC 10.03 X1000 (4.8-10.8)
[2019-04-04 20:17] LABS: PTT 28.7 Seconds (22.3-41.8)
[2019-04-04] MEDS ORDERED: TYLENOL PO ONE (22:21)
[2019-04-04 22:33] LABS: URINE SOURCE CLEAN CATCH
[2019-04-04 22:40] LABS: BILIRUBIN URINE NEGATIVE (NEGATIVE); BLOOD URINE SMALL (NEGATIVE); COLOR YELLOW; GLUCOSE URINE NEGATIVE (NEGATIVE); KETONE URINE NEGATIVE (NEGATIVE); LEUKOCYTES URINE LARGE (NEGATIVE); NITRITE URINE POSITIVE (NEGATIVE); PH URINE 6.5; PROTEIN URINE 50 mg/dL (NEGATIVE); SP GRAVITY URINE 1.008; TURBIDITY URINE HAZY (CLEAR); UR EPITHELIAL CELLS <10 /HPF (<10); URINE BACTERIA 4+ /HPF; URINE RBC <10 /HPF (<10); URINE WBC TNTC /HPF (<10); UROBILINOGEN URINE NORMAL (NORMAL)
[2019-04-04] MEDS ORDERED: ROCEPHIN 1 GM in NS 50 ML IV ONE (22:43)
[2019-04-04] MEDS ORDERED: NS 100 ML IV ONE (22:53)
[2019-04-04] MEDS ORDERED: KLOR-CON PO ONE (22:56)
--- NOTE | 2019-04-04 23:57 | HISTORY AND PHYSICAL ---
PRIMARY CARE PHYSICIAN: Dr. Lucas Salgado. CHIEF COMPLAINT: Fever, chills x4 days. HISTORY OF PRESENTING ILLNESS: A 74-year-old elderly female with a history of asthma, hyperlipidemia and hypertension, who presented to the emergency department with 4-day history of having fevers and chills. She states that she was not feeling well and subsequently she had come to the emergency department. In the ED she was evaluated. She had UA drawn which did show that she did have a UTI. Due to her presenting symptoms, it was thought that she would need admission for further management. At the time of my examination, the patient denied any headache, nausea, vomiting, diarrhea, chest pain, shortness of breath, hemoptysis or weight changes, but complained of fever and chills. PAST MEDICAL HISTORY: Includes asthma, breast cancer, hyperlipidemia and hypertension. PAST SURGICAL HISTORY: Left knee replacement, left mastectomy, hysterectomy, appendectomy. ALLERGIES: Codeine and Benadryl. MEDICATIONS: Current medications include Norvasc 5 mg p.o. at bedtime; aspirin 81 mg p.o. daily; losartan/hydrochlorothiazide 100/12.5 one p.o. daily; Singulair 10 mg p.o. daily; coenzyme Q10, 100 mg p.o. daily. SOCIAL HISTORY: No history of smoking, alcohol or illicit drug use. FAMILY HISTORY: Positive for coronary disease in father. REVIEW OF SYSTEMS: Fourteen-point review of system is as in HPI. Other systems negative. PHYSICAL EXAMINATION: GENERAL: Cooperative, friendly female. She is resting more comfortably now. VITAL SIGNS: Temperature 100.5 degrees, pulse 112, respirations 26, blood pressure 81/52. HEENT: Atraumatic, normocephalic. Extraocular movements intact. PERRLA. NECK: No masses. CHEST: Clear to auscultation. CARDIOVASCULAR: Regular rate and rhythm. ABDOMEN: Soft. Positive bowel sounds. EXTREMITIES: No edema. NEUROLOGIC: She is awake, alert and oriented x3. GENITOURINARY: No bladder distention. SKIN: Warm. LABORATORY STUDIES: UA shows large leukocytes, nitrite positive. Sodium 135, potassium 3.4, chloride 101, CO2 is 22, BUN is 36, creatinine is 1.7, glucose is 118. WBC 10.03, hemoglobin 13.6, hematocrit 40.0, platelets 137,000. ASSESSMENT: A 74-year-old female with a history of asthma, hyperlipidemia and hypertension presented to emergency department with 4-day history of having fevers and chills. She was evaluated in the emergency department. She had a urinalysis done which did show that she had a urinary tract infection. Due to her presenting symptoms, she will require admission for further management. 1. Fever/chills. 2. Urinary tract infection. 3. Acute kidney injury. 4. Hyperlipidemia. 5. Hypertension. PLAN: 1. We will admit patient to medical floor with telemetry. 2. We will check blood cultures. Start patient on IV antibiotics. 3. Continue with IV fluids and monitor renal function. 4. We will restart all home medications. 5. Put patient on DVT prophylaxis with SCDs. 6. We will continue to follow and reassess, and make further recommendations based on the patient's clinical course. cc: Matteo Schulte MD MTDD
[2019-04-05] MEDS ORDERED: NORCO-5 PO ONE (01:11)
[2019-04-05] MEDS ORDERED: ZOFRAN IV PRN (01:40)
[2019-04-05] MEDS ORDERED: ZOFRAN ONE (01:51)
[2019-04-05] MEDS ORDERED: NS 1,000 ML IV SCH (02:06)
[2019-04-05] MEDS ORDERED: TYLENOL PO PRN (02:06)
[2019-04-05] MEDS ORDERED: NS 1,000 ML IV ONE (04:58)
[2019-04-05 07:12] LABS: CALCIUM 7.6 mg/dL (8.8-10.2); CREATININE 1.5 mg/dL (0.5-0.9); POTASSIUM 3.7 mmol/L (3.5-5.1)
[2019-04-05 07:15] LABS: BASO# 0.01 X1000 (0.0-0.2); BASO% 0.1 % (0.0-0.8); HEMATOCRIT 35.1 % (37.0-47.0); HEMOGLOBIN 11.3 g/dL (12.0-16.0); IMM GRAN# 0.31 X1000 (0.0-0.04); IMM GRAN% 2.1 % (0.0-0.5); LYMPH# 0.64 X1000 (1.2-3.4); LYMPH% 4.4 % (20.5-51.1); MCH 28.1 PG (27-31); MCHC 32.2 g/dL (33-37); MCV 87.3 FL (81-99); MONO# 1.07 X1000 (0.11-0.59); MONO% 7.4 % (1.7-9.3); MPV 10.7 FL (7.4-10.4); NEUT# 12.39 X1000 (1.4-6.5); PLT 115 X1000 (130-400); RBC 4.02 XMIL (4.2-5.4); RDW 15.3 % (11.5-14.5); WBC 14.42 X1000 (4.8-10.8)
[2019-04-05 07:21] LABS: LYMPHS 4 % (21-51); MONO 8 % (1-9); SEGS 88 % (42-75)
[2019-04-05] MEDS: ZOSYN 3.375 GM in NS 50 ML IV SCH ×3 (10:37→21:07)
[2019-04-05] MEDS: NS 1,000 ML IV SCH ×2 (10:49→21:07)
[2019-04-05] MEDS: LEVAQUIN 500 MG/D5W 500 MG/100 ML IVPB IV SCH (11:17)
--- NOTE | 2019-04-05 12:22 | PROGRESS NOTE ---
DATE: 04/05/2019 SUBJECTIVE: The patient's chart was reviewed. In summary, over the course of the last 2 to 3 days, the patient has experienced a fever. The patient denied additional symptoms associated. Yesterday evening, with persistence of her fever, she presented to the emergency department. Upon arrival, a full evaluation was pursued. The patient was found to have a fever of 100.5, hypotension with a blood pressure of 81/52, and an elevated pulse rate. Laboratory evaluation revealed a normal white blood cell count, but a grossly abnormal urinalysis. The patient was placed on Rocephin therapy and admitted to the hospital. Throughout the night, the patient continued to have hypotension. She was treated with IV fluid boluses. This morning, the patient states she feels more poorly than upon admission. The patient complains of weakness as well as some shortness of breath. Her p.o. intake is marginal. At current time, she is afebrile. OBJECTIVE: vital signs: T-max 100.5 degrees, heart rate 81 to 112, respirations 12 to 26, blood pressure 81 to 121 over 52 to 71. General: Ill-appearing, slightly tachypneic. Cardiovascular: Regular rate and rhythm. No significant murmurs, rubs, or gallops. Pulmonary: Clear to auscultation bilaterally. Abdomen: Soft, nontender, nondistended. Positive bowel sounds. Extremities: Moves all extremities well. No significant clubbing or cyanosis. Trace to 1+ lower extremity edema bilaterally. Dermatologic: Evaluation reveals no evidence of rash. LABORATORY DATA: White blood cell count 14.42, hemoglobin 11.3, hematocrit 35.1, platelet count is 115,000. Sodium 139, potassium 3.7, chloride 108, bicarb 18, BUN 31, creatinine 1.5, glucose 117, calcium 7.6, plasma lactate 2.4. ASSESSMENT AND PLAN: 1. Acute urinary tract infection/pyelonephritis with sepsis - The patient's white blood cell count has increased from yesterday. Overall, clinically, the patient states she feels worse. In the setting of hypotension through the evening, we will transfer the patient to the CICU. We will continue IV fluids. We will discontinue Rocephin in exchange for Zosyn and Levaquin therapy. We will continue to follow blood and urine cultures. In the setting of hematuria and low back pain, we will check a CT scan of the abdomen and pelvis to confirm she does not have an obstructing stone with associated infection. 2. Low back pain - I suspect this is secondary to pyelonephritis - As above, we will, however, rule out underlying symptomatic nephrolithiasis with a CT scan of the abdomen and pelvis. 3. Hypotension - This likely is a consequence of her underlying sepsis. She has been volume resuscitated to the point of increasing shortness of breath. We will continue aggressive, but cautious hydration. At this point, I do not feel pressor intervention is warranted; however, we will monitor the patient closely through hospitalization. 4. Shortness of breath - This likely is a consequence of her aggressive volume resuscitation. We will recheck a chest x-ray today. We will adjust volume resuscitation. Once again, we will continue oxygen per protocol. We will resume her home medications for asthma. 5. Acute renal failure - The patient's baseline creatinine is less than 1. Creatinine today is elevated at 1.5. Again, this likely is a consequence of her acute illness and underlying sepsis. We will continue hydration. We will follow this. 6. Profound weakness - This is likely a consequence of her acute illness. We will treat as described above. 7. Hyperlipidemia - We will plan to resume Crestor once her clinical condition has stabilized. 8. Profound weakness - This is likely a consequence of her acute illness. We will treat as above. Once able, we will plan to incorporate physical therapy and activity. DISPOSITION: As above, we will transfer the patient to the CICU secondary to the critical nature of her condition. We will plan discharge home once appropriate. cc: Lucas Salgado MD
[2019-04-05] MEDS ORDERED: LOVENOX SUBQ SCH (12:25)
[2019-04-05] MEDS: NEXIUM PO SCH (13:06)
[2019-04-05] MEDS: COENZYME Q10 PO SCH (13:06)
[2019-04-05] MEDS: SINGULAIR PO SCH (13:06)
--- NOTE | 2019-04-05 13:12 | Diag Imaging Result Doc PS360 ---
EXAM: CHEST-PORTABLE - 04/05/2019 HISTORY: R/O Volume Overload TECHNIQUE: Portable chest COMPARISON: 04/04/2019 FINDINGS: Heart size is normal. There is mild interstitial marking prominence. There is mild thickening of the right minor fissure. There is no dense consolidation, substantial pleural effusion, or pneumothorax identified. IMPRESSION: Mild interstitial marking prominence, which may relate to mild interstitial edema. Electronically signed by Kelby Hansen 04/05/2019 1:09 PM
[2019-04-05] MEDS: DUONEB (A & A) INH SCH ×2 (15:36→19:26)
--- NOTE | 2019-04-05 15:38 | Diag Imaging Result Doc PS360 ---
EXAM: CT RENAL STONE SEARCH - 04/05/2019 HISTORY: hematuria/ LBP TECHNIQUE: CT renal stone search without contrast COMPARISON: None. FINDINGS: There is bilateral perinephric edema versus scarring. There is no substantial distention of the bilateral renal collecting systems. There is no renal stone identified. The possibility of bilateral nephritis or retroperitoneal fibrosis cannot be excluded. There is a nonspecific 8 mm hyperdense lesion at the posterior mid to lower right kidney. There are lumbar spine degenerative changes. There is apparent associated substantial spinal stenosis at L4-5. There is apparently less substantial spinal stenosis at other levels. There are nonspecific small to borderline retroperitoneal lymph nodes. There is no evidence of bowel obstruction. There is mild colonic diverticulosis. There is no indication of diverticulitis. There is no free air. There are no calcified gallstones seen. There are small right and tiny left pleural effusions with adjacent dependent atelectasis noted. There has been prior hysterectomy. There is a small amount of free fluid in the pelvis. IMPRESSION: Bilateral perinephric edema versus scarring. The possibility of bilateral nephritis or retroperitoneal fibrosis cannot be excluded. There is no obstructing renal stone or substantial hydronephrosis identified. Lumbar spine degenerative changes with apparent multilevel spinal stenosis, most prominent at L4-5. This exam was performed using automated exposure control, adjustment of mA or kV according to patient size, and/or use of iterative reconstruction technique. Electronically signed by Kelby Hansen 04/05/2019 3:36 PM
[2019-04-05] MEDS: TYLENOL PO PRN (21:07)
[2019-04-05] MEDS: MAG-OX PO SCH (21:07)
[2019-04-05] MEDS: ZYRTEC PO SCH (21:07)
[2019-04-05] MEDS ORDERED: ROCEPHIN 1 GM in NS 50 ML IV SCH (23:00)
[2019-04-06] MEDS: DUONEB (A & A) INH SCH ×7 (00:03→23:37)
[2019-04-06] MEDS: NS 1,000 ML IV SCH ×2 (03:50→20:13)
[2019-04-06] MEDS: ZOSYN 3.375 GM in NS 50 ML IV SCH ×4 (03:50→22:42)
[2019-04-06 05:51] LABS: BASO# 0.01 X1000 (0.0-0.2); BASO% 0.1 % (0.0-0.8); HEMATOCRIT 37.2 % (37.0-47.0); HEMOGLOBIN 12.2 g/dL (12.0-16.0); IMM GRAN# 0.08 X1000 (0.0-0.04); IMM GRAN% 0.5 % (0.0-0.5); LYMPH# 1.12 X1000 (1.2-3.4); MCH 28.6 PG (27-31); MCHC 32.8 g/dL (33-37); MCV 87.1 FL (81-99); MONO# 1.15 X1000 (0.11-0.59); MONO% 7.2 % (1.7-9.3); MPV 11.6 FL (7.4-10.4); NEUT# 13.68 X1000 (1.4-6.5); NEUT% 85.2 % (42.2-75.2); PLT 113 X1000 (130-400); RBC 4.27 XMIL (4.2-5.4); RDW 15.9 % (11.5-14.5); WBC 16.04 X1000 (4.8-10.8)
[2019-04-06] MEDS: NEXIUM PO SCH (06:06)
[2019-04-06 06:07] LABS: ALB/GLOB RATIO 0.6; ALBUMIN 2.2 g/dL (3.5-5.0); CALCIUM 8.3 mg/dL (8.8-10.2); CREATININE 1.4 mg/dL (0.5-0.9); POTASSIUM 3.7 mmol/L (3.5-5.1); TOTAL BILIRUBIN 0.35 mg/dL (0.20-1.00); TOTAL PROTEIN 5.6 g/dL (6.3-8.3)
--- NOTE | 2019-04-06 07:22 | Diag Imaging Result Doc PS360 ---
EXAM: CHEST-1 VIEW INDICATION: shortness of breath TECHNIQUE: One view COMPARISON: 04/05/2019 FINDINGS: Mild increased interstitial markings are approximately stable. No new consolidation is appreciated. Cardiac silhouette is stable. IMPRESSION: Stable chest. Electronically signed by Mauricio Echeverria 04/06/2019 7:20 AM
--- NOTE | 2019-04-06 08:06 | EKG Report ---
Test Performed on : 04/06/2019 07:58:20 AM Test Reason : rhythm change Blood Pressure : / mmHG Vent. Rate : 115 BPM Atrial Rate : 166 BPM P-R Int : 000 ms QRS Dur : 128 ms QT Int : 346 ms P-R-T Axes : 000 -48 036 degrees QTc Int : 478 ms Atrial fibrillation. with rapid ventricular response. Right bundle branch block Left anterior fascicular block Bifascicular block Abnormal ECG When compared with ECG of 29-JAN-2016 10:54, Atrial fibrillation. has replaced Sinus rhythm. ST no longer elevated in Anterior leads T wave inversion no longer evident in Inferior leads Confirmed by Julio MATTHEWS, Chadd Hernández ([id number]) on 04/06/2019 5:06:27 PM
[2019-04-06] MEDS ORDERED: LANOXIN IV ONE (08:43)
[2019-04-06] MEDS ORDERED: ASPIRIN PO SCH (09:00)
[2019-04-06 09:15] LABS: FREE T4 0.76 ng/dL (0.93-1.70); TSH 0.97 uIUmL (0.27-4.20)
[2019-04-06] MEDS: LEVAQUIN 500 MG/D5W 500 MG/100 ML IVPB IV SCH (09:15)
[2019-04-06 09:16] LABS: ALLEN TEST YES; BE -6.3 mmoll (-3.0-3.0); BLOOD TYPE ARTERIAL; O2(CT) 15.6 mL/dL (15.0-23.0); O2HB 94.8 % (95.0-99.0); PCO2(98.6) 30 mmHg (35-45); PO2(98.6) 62 mmHg (60-100); SAMPLE BLOOD; SAO2 97.9 % (95.0-100.0); THB 11.7 g/dL (11.5-17.4); pH(98.6) 7.38 (7.35-7.45)
[2019-04-06] MEDS: MAG-OX PO SCH ×2 (09:16→20:12)
[2019-04-06] MEDS: ZYRTEC PO SCH (09:16)
[2019-04-06] MEDS: COENZYME Q10 PO SCH (09:16)
[2019-04-06] MEDS: SINGULAIR PO SCH (09:16)
[2019-04-06 09:17] LABS: MODALITY CANNULA
[2019-04-06] MEDS ORDERED: CARDIZEM PO SCH (10:42)
[2019-04-06] MEDS: ELIQUIS PO SCH ×2 (11:21→20:12)
--- NOTE | 2019-04-06 11:21 | CARDIOLOGY CONSULTATION ---
DATE: 04/06/2019 REASON FOR CONSULTATION: Patient admitted with urinary tract infection, bacteremia. The patient went into atrial fibrillation. Cardiology was consulted. HISTORY OF PRESENT ILLNESS: A 74-year-old lady with history of asthma, hypertension, hyperlipidemia, came to the emergency room with a 4-day history of having fevers with chills. Temperature had gone up to 104. She was noted to be in atrial fibrillation, was given digoxin, moved to CICU. Since starting antibiotics, she feels much better. She does not complain of having had any burning sensation in her urine. As far as her cardiovascular system is concerned, she does feel the palpitations. Denies chest pain suggestive of angina. There is no shortness of breath. There is no orthopnea or paroxysmal nocturnal dyspnea. REVIEW OF SYSTEMS: A 14-point review of systems was done. GI: There is no history of nausea, vomiting, diarrhea. There is no history of hematemesis or melena. Central Nervous System: No focal weakness to suggest a CVA or TIA. Genitourinary: As above. Endocrine: Stable. PAST MEDICAL HISTORY: 1. Asthma. 2. Hyperlipidemia. 3. Hypertension. 4. History of breast cancer. 5. Left knee replacement. 6. Left mastectomy. 7. Hysterectomy. 8. Appendectomy. ALLERGIES: She is allergic to codeine and Benadryl. HOME MEDICATIONS: Include Norvasc 5, aspirin 81 mg a day, losartan/hydrochlorothiazide 100/12.5, Singulair 10, coenzyme Q. SOCIAL HISTORY: She does not smoke, does not drink. PHYSICAL EXAMINATION: Vital Signs: Blood pressure was 81/52. She was given IV fluids. Subsequently, blood pressure at the present time is 117/68. Cardiovascular: Normal jugular venous pressure. First and second heart sounds were heard. There is no S3 gallop. Respiratory: Normal air entry. There are no crepitations or rhonchi. Abdomen: Soft, nontender. There was no guarding or rigidity. Bowel sounds were heard. Central Nervous System: Alert and oriented. Moving all 4 extremities. Extremities: No pedal edema. HEENT: Atraumatic, normocephalic. Pupils were equal and reacting to light. LABORATORY DATA: Sodium 144, potassium 3.7, BUN 25, creatinine 1.4. WBC 16.04, hemoglobin 12.2, hematocrit 37. Cardiac enzymes negative. ASSESSMENT AND PLAN: 1. Ms. Angi Hsu is a 74-year-old lady with history of hypertension and asthma, is admitted, has urinary tract infection, gram-negative rods noted. She has been on Levaquin and Zosyn. From a cardiac standpoint, she is in atrial fibrillation, currently in sinus rhythm. Will put her on Cardizem 60 mg by mouth three times daily. I suspect this atrial fibrillation is secondary to her urinary tract infection bacteremia. We will get an echocardiogram to assess cardiac and valvular function. 2. At home, for hypertension, she has been on losartan and Norvasc. Will discontinue the Norvasc as we are adding Cardizem. Her blood pressure is on the lower side, and losartan has been held. We can reinstitute once blood pressures are stable. 3. As far as anticoagulation therapy is concerned, she is on aspirin at home. Will discontinue the aspirin, and put her on Eliquis 5 mg to be taken twice daily. Will discontinue the Lovenox also. 4. Chest x-ray was unremarkable. Thank you for the consult. Will follow hospital course. cc: MD Lucas Cosme MD
--- NOTE | 2019-04-06 11:47 | EKG Report ---
Test Performed on : 04/06/2019 11:08:16 AM Test Reason : afib Blood Pressure : / mmHG Vent. Rate : 094 BPM Atrial Rate : 094 BPM P-R Int : 148 ms QRS Dur : 128 ms QT Int : 378 ms P-R-T Axes : 048 -36 040 degrees QTc Int : 472 ms Normal sinus rhythm. Left axis deviation Nonspecific intraventricular block Abnormal ECG When compared with ECG of 06-APR-2019 07:58, (Unconfirmed) Sinus rhythm. has replaced Atrial fibrillation. Confirmed by Julio MATTHEWS, Chadd Hernández ([id number]) on 04/06/2019 5:06:41 PM
--- NOTE | 2019-04-06 12:46 | INFECTIOUS DISEASE CONSULT REP ---
DATE: 04/06/2019 CONCLUSION: The patient is admitted to the hospital with a urinary tract infection involving both kidneys. There also is an associated bacteremia. Unfortunately, the patient has a left total knee arthroplasty. RECOMMENDATIONS: I agree with treating the patient with Zosyn. I have discontinued Levaquin. The patient will require a 6-week course of antibiotics because while the patient is bacteremic, her left knee prosthesis could have become infected. After the 6 week antibiotic treatment, I probably will put the patient on a low dose of an oral antibiotic on a chronic basis hopefully to prevent any flare up of an infection that might have occurred to the prosthesis when the patient was bacteremic. DISCUSSION: The patient tells me approximately 5 days before admission to the hospital, she has started having fever, weakness and shortness of breath. She also had low back pain. She denied having dysuria. Laboratory studies show a CBC with a white count of 16,040, hemoglobin 12.2, and platelet count 113,000. Creatinine is down now to 1.4. GFR is 37. Liver function studies are normal. Arterial blood gases show a pH of 7.38, a PO2 of 62, and a pCO2 of 30. Urinalysis showed white cells and bacteria. Blood and urine cultures are growing a gram-negative lucio. CT scan of the kidney showed bilateral perinephric edema consistent with nephritis. Chest x-ray shows bilateral interstitial markings. PAST MEDICAL HISTORY/REVIEW OF SYSTEMS: Eyes and ears: Hearing and vision are good. Neck: No stiffness. Respiratory: The patient did complain of being short of breath. This seemed to occur after she went into atrial fibrillation in the hospital. Before that, she was not having any breathing problems. Cardiac: No chest pain or palpitations. She did go into atrial fibrillation after being admitted to the hospital. Gastrointestinal: No nausea, vomiting, or diarrhea. She did have a stool after she got in the hospital that she could not control, but it was not real loose. Integument: No rash. Endocrine: No history of diabetes or thyroid disease. CARDIAC CATH RN HISTORY: She has never been . She has had a hysterectomy. PREVIOUS HOSPITALIZATIONS AND OPERATIONS: She had a mastectomy and reconstruction of the breast. She has had a left total knee arthroplasty. She has had cataract surgery also. MEDICAL DISEASES: Positive for hypertension, breast cancer, osteoarthritis, and cataract. INFECTIOUS DISEASE HISTORY: Positive for urinary tract infection and pneumonia. FAMILY HISTORY: Positive for diabetes mellitus, hypertension, myocardial infarction, stroke and cancer. SOCIAL HISTORY: The patient is . She has a dog as a pet. She does not smoke cigarettes, drink alcoholic beverages or abuse drugs. 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 ALLERGIES: She said she is allergic to Benadryl and codeine. MEDICATIONS: Medications taken at home include the following 1. Aspirin. 2. Zyrtec. 3. Esomeprazole. 4. Losartan/hydrochlorothiazide. 5. Magnesium oxide. 6. Nucala. 7. Singulair. 8. Coenzyme Q-10. PHYSICAL EXAMINATION: Vital Signs: Temperature is 97.4 degrees, pulse 103, respirations 18, blood pressure 117/68. Patient is 5 feet 4 inches tall, weighs 263 pounds. General: This is an obese, elderly female. She is in no acute distress. Head, eyes, ears, nose, and throat: She can hear my spoken words and see near objects. She does not have any white patches on her tongue. Neck: No meningismus. Lungs: There were bibasilar rales. Cardiovascular: Heart rate was regular. Abdomen: Abdomen and flanks soft. There was no tenderness in the abdomen. The patient states she felt pressure in both flanks when I palpated the areas. Neurologic: The patient is alert. She can move her extremities. There is no tremor. Her sensation is intact to touch. Her memory as regarding her medical history is intact. Integument: No rash noted. Thank you for the consult. cc: MD Lucas Alvarado MD
[2019-04-06] MEDS: CARDIZEM PO SCH ×2 (15:54→20:13)
[2019-04-06] MEDS: TYLENOL PO PRN (20:12)
--- NOTE | 2019-04-06 22:25 | PROGRESS NOTE ---
DATE: 04/06/2019 SUBJECTIVE: Upon my arrival this morning, patient states she was feeling poorly. The patient was found to be in atrial fibrillation with rapid ventricular response. A dose of IV digoxin was provided. Dr. Pillai with Cardiology was consulted. Soon after the digoxin was provided, patient converted back to a normal sinus rhythm. Throughout the day today, patient's overall condition demonstrated improvement. This evening, patient states that she ate reasonably well today. Her energy level remains very low but is improved from this morning. She continues to have mild shortness of breath, although this has decreased considerably. She denies fevers, chills, nausea, vomiting, or chest discomfort. OBJECTIVE: Vital signs: T-max 98.1, heart rate 82 to 111, respirations 16 to 21, blood pressure 108 to 157 over 51 to 78. General: Well nourished, well developed, no acute distress. Cardiovascular: Regular rate and rhythm. No significant murmurs, rubs, or gallops. Pulmonary: Clear to auscultation bilaterally. Abdomen: Soft, nontender, nondistended. Positive bowel sounds. Extremities: Moves all extremities well. No significant clubbing, cyanosis, or edema. Dermatologic: Evaluation reveals no evidence of rash. LABORATORY DATA: White blood cell count 16.04, hemoglobin 12.2, hematocrit 37.2, platelet count 213,000, pH 7.38, pCO2 30, pO2 62, bicarbonate 20, sodium 144, potassium 3.7, chloride 114, bicarb 16, BUN 25, creatinine 1.4, glucose 146, calcium 8.3, magnesium 2.3, total bilirubin 0.35, total protein 5.6, albumin 2.2, alkaline phosphatase 110, AST 16, ALT 13, CK 33, troponin less than 0.010, TSH 0.97. ASSESSMENT AND PLAN: 1. Pyelonephritis with associated sepsis--Blood cultures and urine cultures thus far demonstrate a gram-negative lucio. Dr. Perez was consulted. Antibiotic adjustments were made. For now, we will continue Zosyn therapy. We will follow up culture data and adjust medications, medical intervention as necessary. The patient will likely require outpatient IV antibiotics. In the setting of having a total knee arthroplasty, long-term antibiotics will also need to be considered. 2. Low back pain--Patient's symptoms are tolerable. This likely is a consequence of bilateral pyelonephritis. We will treat as described above. 3. Atrial fibrillation with rapid ventricular response--I appreciate Dr. Pillai's consultation. We will continue medications as recommended. She currently is in a normal sinus rhythm. 4. Hypotension--This is a consequence of her sepsis. The patient has achieved recovery. We will remain aware. 5. Shortness of breath--This likely is secondary to a combination of volume, metabolic acidosis and history of asthma. We will continue supportive care for now. 6. Acute renal failure--The patient's creatinine remains slightly elevated at 1.4. We will continue IV fluids. 7. Profound weakness--This likely is a consequence of her acute illness. We will start physical therapy once able. 8. Hyperlipidemia--We will continue patient on Crestor therapy. 9. Disposition--At this point, patient continues to require halfway care in a hospital setting. We will plan discharge home once appropriate. cc: Lucas Salgado MD
--- NOTE | 2019-04-06 23:47 | ECHO REPORT ---
ORDER DATE: 04/06/2019 MEASUREMENTS: Septal thickness 0.8, left ventricular internal diameter diastole 4.8, posterior wall thickness 0.8, left ventricular internal diameter in systole 3.0, left atrium 3.9, aortic root 3.4. SUMMARY: 1. Fair quality study. 2. Aortic valve is trileaflet and opens normally on 2-dimensional images. Peak gradient across aortic valve is approximately 10 mmHg. Mitral annular calcification is demonstrated appears to be moderate. There is mild mitral regurgitation. Tricuspid and pulmonic valves are without evidence of structural abnormality with trace tricuspid regurgitation and trace pulmonic insufficiency. The estimated systolic PA pressure by Doppler is 45 mmHg suggesting mild pulmonary hypertension. Aortic root is normal in size. 3. Normal left ventricular dimensions demonstrated. Estimated left ventricular ejection fraction approximately 70%. No regional wall motion abnormalities evident. Left atrium is borderline enlarged. The right atrium and right ventricle grossly normal in size. 4. No pericardial effusion. 5. Appearance of inferior vena cava suggests normal central venous pressure. cc: MD Neida Dominguez PA Scott A. Matthews, MD
[2019-04-07] MEDS: DUONEB (A & A) INH SCH ×6 (03:33→23:20)
[2019-04-07] MEDS: ZOSYN 3.375 GM in NS 50 ML IV SCH (03:55)
[2019-04-07 05:24] LABS: BASO# 0.02 X1000 (0.0-0.2); BASO% 0.1 % (0.0-0.8); HEMATOCRIT 34.8 % (37.0-47.0); HEMOGLOBIN 11.4 g/dL (12.0-16.0); IMM GRAN# 0.19 X1000 (0.0-0.04); IMM GRAN% 1.3 % (0.0-0.5); LYMPH# 1.33 X1000 (1.2-3.4); LYMPH% 9.2 % (20.5-51.1); MCH 28.2 PG (27-31); MCHC 32.8 g/dL (33-37); MCV 86.1 FL (81-99); MONO% 6.9 % (1.7-9.3); MPV 11.3 FL (7.4-10.4); NEUT# 11.85 X1000 (1.4-6.5); NEUT% 82.5 % (42.2-75.2); PLT 124 X1000 (130-400); RBC 4.04 XMIL (4.2-5.4); RDW 15.9 % (11.5-14.5); WBC 14.39 X1000 (4.8-10.8)
[2019-04-07 05:43] LABS: CALCIUM 8.6 mg/dL (8.8-10.2); CREATININE 1.1 mg/dL (0.5-0.9); POTASSIUM 3.7 mmol/L (3.5-5.1)
[2019-04-07] MEDS: NEXIUM PO SCH ×2 (06:04→09:10)
--- NOTE | 2019-04-07 07:32 | EKG Report ---
Test Performed on : 04/07/2019 06:40:55 AM Test Reason : afib Blood Pressure : / mmHG Vent. Rate : 072 BPM Atrial Rate : 072 BPM P-R Int : 142 ms QRS Dur : 130 ms QT Int : 432 ms P-R-T Axes : 046 -39 002 degrees QTc Int : 473 ms Normal sinus rhythm. Left axis deviation Right bundle branch block Abnormal ECG When compared with ECG of 07-APR-2019 06:39, (Unconfirmed) premature ventricular complexes. are no longer present Sinus rhythm. is no longer with junctional escape complexes. Vent. rate has decreased BY 42 BPM Right bundle branch block has replaced Nonspecific intraventricular block Minimal criteria for Septal infarct are no longer present Confirmed by Julio MATTHEWS, Chadd Hernández ([id number]) on 04/07/2019 5:30:58 PM
--- NOTE | 2019-04-07 07:44 | INFECTIOUS DISEASE PROGRESS NO ---
DATE: 04/07/2019 PRESENT ILLNESS: The patient has a gram-negative ulcio urinary tract infection with an associated bacteremia. The patient does have a left total knee arthroplasty in place which could have become infected hematogenously. The patient also appears to be developing oral candidiasis. MEDICATIONS: The patient is on Zosyn. Day 1 of treatment with Zosyn will be the first day that the patient's repeat blood cultures are sterile. PHYSICAL EXAMINATION: Vital Signs: Temperature is 98 degrees, pulse 71, respirations 20, blood pressure 132/56. General: This is an obese, elderly female. She looks much better than she did yesterday. She is in no acute distress. Head, Eyes, Ears, Nose, and Throat: She can hear my spoken words and see near objects. She is beginning to develop some white coating on her tongue, which I think could be due to oral candidiasis. Neck: The patient does not have any neck pain when she moves her head or neck. Lungs: Clear to auscultation. Cardiovascular: Heart rate is regular. Abdomen and Flanks: Soft and nontender. Neurologic: The patient is alert. She can move her extremities. There is no tremor. Extremities: The patient has two IVs going. Neither site looks erythematous or swollen. The patient's left knee also is not swollen. LAB AND X-RAY: There is no radiographic study that has been ordered for today. The patient's CBC shows a white count that is down to 14,390, hemoglobin 11.4, and platelet count 124,000. Creatinine is 1.1. GFR is 48. Blood and urine cultures are growing a gram-negative lucio which has not been identified as of yet. ASSESSMENT AND PLAN: The patient has a gram-negative lucio urinary tract infection and an associated bacteremia. I plan on continuing the Zosyn that Dr. Salgado started because the patient's white count is coming down and the patient's kidney function is almost back to normal while she has been on Zosyn. I am ordering repeat blood cultures today and if they are negative at 48 hour reading, then I think the patient could be discharged home. As mentioned above, we are planning to treat the patient for 6 weeks with the appropriate antibiotic and then after the 6 week treatment, I will most likely put her on a low dose of an oral antibiotic just in case the patient's total knee arthroplasty became infected while the patient was bacteremic. I have also ordered nystatin swish and swallow for the patient's oral candidiasis. The patient also appears to be developing oral candidiasis. I plan to continue Mycostatin swish and swallow for as long as the patient is on the antibiotic that she is going to be on for 6 weeks COMORBIDITIES: The patient is elderly. Unfortunately, she has a total knee arthroplasty in place and she was bacteremic. The total knee arthroplasty could have become infected hematogenously. cc: MD Lucas Alvarado MD
[2019-04-07] MEDS ORDERED: CARDIZEM CD PO SCH (09:00)
[2019-04-07] MEDS: MAG-OX PO SCH ×2 (09:08→20:45)
[2019-04-07] MEDS: ZYRTEC PO SCH (09:09)
[2019-04-07] MEDS: ELIQUIS PO SCH ×2 (09:09→20:45)
[2019-04-07] MEDS: KEFZOL 2 GM/D5W 2 GM/50 ML IVPB IV SCH ×2 (09:09→16:21)
[2019-04-07] MEDS: COENZYME Q10 PO SCH (09:09)
[2019-04-07] MEDS: MYCOSTATIN SUSP PO SCH ×4 (09:09→20:46)
[2019-04-07] MEDS: SINGULAIR PO SCH (09:09)
[2019-04-07] MEDS: NS 1,000 ML IV SCH (16:21)
[2019-04-07] MEDS ORDERED: COZAAR PO ONE (21:54)
--- NOTE | 2019-04-07 22:17 | PROGRESS NOTE ---
DATE: 04/07/2019 SUBJECTIVE: Upon my arrival this morning, patient states she has experienced a significant improvement. She slept well overnight. Her energy level is improving. Throughout the day, patient states she has continued to show improvement. Her p.o. intake has been adequate. She has been up in the chair a vast majority of the day. She denies fevers, chills, nausea, vomiting, shortness of breath, or chest discomfort. OBJECTIVE: Vital Signs: T-max 98.3, heart rate 76 to 86, respirations 16-24, blood pressure 126- 182/52-78. General: Well nourished, well developed, no acute distress. Cardiovascular: Regular rate and rhythm. No significant murmurs, rubs, or gallops. Pulmonary: Clear to auscultation bilaterally. Abdomen: Soft, nontender, nondistended. Positive bowel sounds. Extremities: Moves all extremities well. No significant clubbing, cyanosis, or edema. Dermatologic: Evaluation reveals no evidence of rash. LABORATORY DATA: White blood cell count 14.39, hemoglobin 11.4, hematocrit 34.8, platelet count is 124,000. Sodium 144, potassium 3.7, chloride 115, bicarb 19, BUN 20, creatinine 1.1, glucose 128, calcium 8.6. ASSESSMENT AND PLAN: 1. Pyelonephritis with associated bacteremia/sepsis-blood and urine cultures have grown E coli. Medications that the patient has been transitioned to IV cefazolin therapy while hospitalized. Surveillance cultures were drawn this morning. If the patient's condition continues to improve and surveillance cultures are negative, we will plan discharge home with oral Levaquin per Dr. Perez' recommendation. 2. Low back pain-the patient's symptoms are reasonably controlled at present time. We will continue symptomatic management. 3. Atrial fibrillation with rapid ventricular response-I appreciate Dr. Pillai's consultation. The patient is currently in a normal sinus rhythm. We will transition patient from immediate release Cardizem to long-acting Cardizem. We will continue Eliquis for now. She is currently asymptomatic. 4. Hypotension-the patient has achieved resolution. Blood pressure this evening is elevated. We will resume a low-dose losartan. 5. Shortness of breath-the patient is currently being treated for underlying asthma. We will continue her current regimen. Symptoms are improving. 6. Acute renal failure--the patient's creatinine has improved to 1.1. We will continue to follow. 7. Profound weakness-physical therapy was initiated this morning. We will continue this. 8. Hyperlipidemia-we will continue patient on Crestor therapy. 9. Disposition-at this point, patient continues to require snf care in a hospital setting. We will plan discharge home once appropriate. cc: Lucas Salgado MD
[2019-04-08] MEDS: KEFZOL 2 GM/D5W 2 GM/50 ML IVPB IV SCH ×3 (01:13→16:39)
[2019-04-08] MEDS: DUONEB (A & A) INH SCH ×6 (03:15→23:09)
--- NOTE | 2019-04-08 06:46 | INFECTIOUS DISEASE PROGRESS NO ---
DATE: 04/08/2019 PRESENT ILLNESS: The patient has an E. Coli urinary tract infection with an associated bacteremia. The patient has a left total knee arthroplasty which could have become infected hematogenously. The patient also yesterday appeared to be developing oral candidiasis. MEDICATIONS: The patient is on Ancef. Day 1 of treatment will be the first day that the patient's repeat blood cultures are sterile. PHYSICAL EXAMINATION: Vital Signs: Temperature 97.6 degrees, pulse 70, respirations 17, and blood pressure 141/52. General: This is an obese elderly female. She is in no acute distress. Head/eyes/ears/nose/throat: She can hear my spoken words and see near objects. She does not have any more white coating on her tongue like she had yesterday. Neck: No meningismus. Lungs: Clear to auscultation. Cardiovascular: Heart rate is regular, and the monitor shows that she is in sinus rhythm. Abdomen: Abdomen and flanks soft and nontender. Neurologic: Patient is alert. Yesterday, she sat in a chair and was ambulating. Extremities: The IV sites are not erythematous or tender. The patient's left knee is not swollen. LABORATORY AND X-RAY: There is no new radiographic study today. The patient's creatinine is 1.1. GFR is 48. A CBC has been ordered, but is not back yet. Repeat blood cultures are pending. I have ordered a urine culture today. ASSESSMENT AND PLAN: Patient has an E. Coli urinary tract infection with an associated bacteremia. There is a possibility that the patient's left total knee arthroplasty became infected while the patient was bacteremic. The plan is to continue with antibiotics for 6 weeks. Currently, the patient is on Ancef, and hopefully tomorrow her repeat blood cultures will be negative, and the patient is able to go home. She will be going home on Levaquin 500 mg daily for a total of 6 weeks of antibiotic therapy with day 1 being the first day that the repeat blood cultures are sterile. Following the 6 week course, I will be putting the patient on a low dose of an antibiotic most likely of Keflex in a dose such as 500 mg every 12 hours for a prolonged period just in case the patient's prosthesis is infected, and hopefully the Keflex would prevent it from flaring up. The patient yesterday was developing oral candidiasis. I will plan on keeping her on Mycostatin swish and swallow for the 6 week period where she is getting a high dose of an antibiotic. When that is done and the patient is on a low dose of an antibiotic like Keflex 500 mg p.o. every 12 hours, I do not think she will need any further Mycostatin. The patient's renal function is returning toward normal, and the white blood cell count is coming down. I will repeat both the CBC and creatinine tomorrow morning. PATIENT'S COMORBIDITIES: She is elderly. She unfortunately has a total knee arthroplasty which could have become infected while the patient was having a positive blood culture. I did not find any definite factor that predisposed the patient getting a urinary tract infection, and then becoming bacteremic. As regarding the patient's oral candidiasis, she probably developed it because she was on high doses of antibiotics. cc: MD Lucas Alvarado MD MTDD
[2019-04-08] MEDS: MYCOSTATIN SUSP PO SCH ×4 (08:20→20:02)
[2019-04-08] MEDS: NEXIUM PO SCH (08:20)
[2019-04-08] MEDS: MAG-OX PO SCH ×2 (08:20→20:03)
[2019-04-08] MEDS: ELIQUIS PO SCH ×2 (08:20→20:03)
[2019-04-08] MEDS: ZYRTEC PO SCH (08:20)
[2019-04-08] MEDS: COENZYME Q10 PO SCH (08:20)
[2019-04-08] MEDS: SINGULAIR PO SCH (08:20)
[2019-04-08 08:49] LABS: CALCIUM 8.4 mg/dL (8.8-10.2); CREATININE 1.1 mg/dL (0.5-0.9); POTASSIUM 3.3 mmol/L (3.5-5.1)
--- NOTE | 2019-04-08 08:51 | EKG Report ---
Test Performed on : 04/07/2019 11:17:31 PM Test Reason : Rhythm change Blood Pressure : / mmHG Vent. Rate : 093 BPM Atrial Rate : 111 BPM P-R Int : 000 ms QRS Dur : 126 ms QT Int : 390 ms P-R-T Axes : 000 -36 020 degrees QTc Int : 484 ms Atrial fibrillation. with premature ventricular or aberrantly conducted complexes. Left axis deviation Nonspecific intraventricular block Cannot rule out Septal infarct , age undetermined Abnormal ECG When compared with ECG of 07-APR-2019 06:40, Atrial fibrillation. has replaced Sinus rhythm. Nonspecific intraventricular block has replaced Right bundle branch block Minimal criteria for Septal infarct are now present Confirmed by Julio MATTHEWS, Chadd Hernández ([id number]) on 04/08/2019 3:52:39 PM
--- NOTE | 2019-04-08 08:59 | EKG Report ---
Test Performed on : 04/08/2019 03:50:08 AM Test Reason : CIC. NO EKG ORDER FOR MUSE Blood Pressure : / mmHG Vent. Rate : 071 BPM Atrial Rate : 071 BPM P-R Int : 142 ms QRS Dur : 130 ms QT Int : 430 ms P-R-T Axes : 034 -34 013 degrees QTc Int : 467 ms Normal sinus rhythm. Left axis deviation Nonspecific intraventricular block Abnormal ECG When compared with ECG of 07-APR-2019 23:17, (Unconfirmed) Sinus rhythm. has replaced Atrial fibrillation. Minimal criteria for Septal infarct are no longer present Confirmed by Julio MATTHEWS, Chadd Hernández ([id number]) on 04/08/2019 3:52:43 PM
[2019-04-08] MEDS: CARDIZEM CD PO SCH ×2 (10:24→20:03)
[2019-04-08] MEDS ORDERED: KLOR-CON PO ONE (10:36)
[2019-04-08 13:15] LABS: BASO# 0.08 X1000 (0.0-0.2); BASO% 0.6 % (0.0-0.8); HEMATOCRIT 33.8 % (37.0-47.0); HEMOGLOBIN 11.4 g/dL (12.0-16.0); IMM GRAN# 0.48 X1000 (0.0-0.04); IMM GRAN% 3.5 % (0.0-0.5); LYMPH# 1.51 X1000 (1.2-3.4); LYMPH% 10.9 % (20.5-51.1); MCHC 33.7 g/dL (33-37); MONO# 0.96 X1000 (0.11-0.59); MONO% 6.9 % (1.7-9.3); NEUT# 10.83 X1000 (1.4-6.5); NEUT% 78.1 % (42.2-75.2); PLT 143 X1000 (130-400); RBC 3.93 XMIL (4.2-5.4); RDW 16.1 % (11.5-14.5); WBC 13.86 X1000 (4.8-10.8)
--- NOTE | 2019-04-08 16:08 | PROGRESS NOTE ---
DATE: 04/08/2019 SUBJECTIVE: Upon my arrival this morning, patient states she was doing well. Overnight, she did have an episode of atrial fibrillation. This was self-limiting. The patient states her energy level continues to slowly improve. She denies fevers or chills. Throughout the day, patient has done reasonably well. She walked with physical therapy. This afternoon, she again states that she continues improvement. She has had no further episodes of palpitations or atrial fibrillation per telemetry. OBJECTIVE: T-max 98.3 degrees, heart rate 65 to 106, respirations 17 to 20, blood pressure 134 to 167 over 52 to 70.General: Well nourished, well developed, no acute distress. Cardiovascular: Regular rate and rhythm. No significant murmurs, rubs, or gallops. Pulmonary: Clear to auscultation bilaterally. Abdomen: Soft, nontender, nondistended. Positive bowel sounds. Extremities: Moves all extremities well. No significant clubbing, cyanosis, or edema. Dermatologic: Evaluation reveals no evidence of rash. LABORATORY DATA: White blood cell count 13.86 hemoglobin 11.4, hematocrit 33.8, platelet count 143,000. ASSESSMENT AND PLAN: 1. Pyelonephritis with associated bacteremia/sepsis-blood and urine cultures grew Escherichia coli. I appreciate Dr. Perez' consultation. For now, we will continue IV cefazolin while hospitalized. Surveillance cultures were drawn yesterday. The results are pending. At discharge, we will defer outpatient antibiotics per Dr. Perez. 2. Low back pain-patient has achieved improvement while hospitalized. We will continue symptomatic management. 3. Atrial fibrillation with rapid ventricular response-as above, patient had an additional episode, nonsustained, overnight. We will transition patient from Cardizem 180 mg daily to Cardizem CD 120 mg twice daily. We will continue Eliquis therapy. Further recommendations will be made per Dr. Pillai. 4. Anticoagulation-patient has been anticoagulated secondary to atrial fibrillation. We will continue Eliquis therapy. 5. Hypotension-patient has achieved resolution. She now is hypertensive. We will increase Cardizem as described above. Her losartan/hydrochlorothiazide has been held. 6. Shortness of breath/asthma-patient's symptoms are reasonably controlled with DuoNeb therapy. 7. Acute renal failure--the patient's creatinine has returned to approaching baseline at 1.1. We will continue to encourage adequate hydration. 8. Profound weakness - the patient is achieving improvement with physical therapy. We will continue. 9. Hyperlipidemia-we will continue patient on Crestor therapy. 10. Hypokalemia-we will replete today. 11. Disposition-at this point, patient continues to require custodial care in a hospital setting. We will plan discharge home once appropriate. cc: Lucas Salgado MD
[2019-04-09] MEDS: KEFZOL 2 GM/D5W 2 GM/50 ML IVPB IV SCH ×2 (01:28→09:11)
[2019-04-09] MEDS: DUONEB (A & A) INH SCH ×2 (03:26→08:22)
[2019-04-09 05:53] LABS: BASO# 0.08 X1000 (0.0-0.2); BASO% 0.6 % (0.0-0.8); HEMATOCRIT 37.6 % (37.0-47.0); HEMOGLOBIN 12.2 g/dL (12.0-16.0); IMM GRAN# 0.71 X1000 (0.0-0.04); IMM GRAN% 5.5 % (0.0-0.5); LYMPH% 14.7 % (20.5-51.1); MCHC 32.4 g/dL (33-37); MCV 86.4 FL (81-99); MONO# 0.96 X1000 (0.11-0.59); MONO% 7.4 % (1.7-9.3); MPV 10.6 FL (7.4-10.4); NEUT# 9.24 X1000 (1.4-6.5); NEUT% 71.8 % (42.2-75.2); PLT 166 X1000 (130-400); RBC 4.35 XMIL (4.2-5.4); RDW 16.3 % (11.5-14.5); WBC 12.89 X1000 (4.8-10.8)
[2019-04-09 06:02] LABS: CALCIUM 8.8 mg/dL (8.8-10.2); CREATININE 1.1 mg/dL (0.5-0.9); POTASSIUM 3.6 mmol/L (3.5-5.1)
[2019-04-09 06:16] LABS: LYMPHS 16 % (21-51); MONO 8 % (1-9); SEGS 76 % (42-75)
--- NOTE | 2019-04-09 06:57 | INFECTIOUS DISEASE PROGRESS NO ---
DATE: 04/09/2019 PRESENT ILLNESS: The patient has an Escherichia coli urinary tract infection with an associated bacteremia. The patient has a left total knee arthroplasty, which could have become infected hematogenously. The patient appeared to be developing oral candidiasis, but when I came in today, the tongue had not changed in appearance. The patient said it was not sore, and she said that the taste of the Mycostatin swish and swallow was very bad. MEDICATIONS: The patient currently is on Ancef. Day 1 of treatment will be the first day that the patient's repeat blood cultures are sterile. The patient also is on nystatin swish and swallow. Given the fact that the patient did not have any symptoms of oral candidiasis and the nystatin had a bad taste for her, I am not going to plan on continuing nystatin. If the patient's repeat blood culture is negative, our plan is to send the patient home today on Levaquin. PHYSICAL EXAMINATION: Vital Signs: Temperature is 98.1 degrees, pulse 63, respirations 17, blood pressure 154/76. General: This is an obese, elderly female. She is in no acute distress. HEENT: She can hear my spoken words and see near objects. She does seem to have a slight white coating on her tongue now, and the patient states that, as mentioned above, it is not sore. Neck: There was no pain in her neck when she moved her neck or head. Lungs: Clear to auscultation. Cardiovascular: Heart rate is regular. The monitor shows she has been in sinus rhythm continuously all night. Abdomen and Flanks: Soft and nontender. Neurologic: The patient is alert. She was sitting most of the day yesterday, and ambulated down the vasquez. Extremities: The patient's IV sites are not erythematous or swollen. The patient's left knee is not swollen, and it did not cause pain moving it. LABORATORY DATA: The CBC shows the white count continues to come down. It is 12,890, hemoglobin 12.2, and platelet count 166,000. Creatinine is 1.1. GFR is 48. Repeat blood and urine cultures are pending. ASSESSMENT AND PLAN: Assuming that the blood culture and the urine hopefully both are negative, most likely I will be sending the patient home today on Levaquin 500 mg by mouth daily. Some of the side effects of the antibiotic, including rash, diarrhea, seizures, tendon rupture, and neurologic difficulties have been explained to the patient, who agrees with treatment. I plan on having the patient come to my office in 3 weeks, and then again at 6 weeks, and at the 6-week visit, the Levaquin will be discontinued, and most likely I will start the patient on Keflex 500 mg by mouth every 12 hours on a chronic basis because, as mentioned above, while the patient was bacteremic, her total knee arthroplasty could have become infected. As regarding the possible oral candidiasis, I am not going to send the patient home on nystatin, but I told her if her tongue starts feeling sore or it changes how it looks, to notify me. COMORBIDITIES: She is elderly. She unfortunately has a total knee arthroplasty in place, which could have become infected while she was bacteremic. cc: MD Lucas Alvarado MD
[2019-04-09 07:32] VITALS: BP 161/81
[2019-04-09] MEDS: ZYRTEC PO SCH (09:10)
[2019-04-09] MEDS: COENZYME Q10 PO SCH (09:10)
[2019-04-09] MEDS: MAG-OX PO SCH (09:10)
[2019-04-09] MEDS: NEXIUM PO SCH (09:10)
[2019-04-09] MEDS: SINGULAIR PO SCH (09:10)
[2019-04-09] MEDS: CARDIZEM CD PO SCH (09:10)
[2019-04-09] MEDS: ELIQUIS PO SCH (09:10)
[2019-04-09] MEDS: MYCOSTATIN SUSP PO SCH (09:11)
[2019-04-09] MEDS ORDERED: LANOXIN PO SCH (10:45)
--- NOTE | 2019-04-09 22:50 | DISCHARGE SUMMARY ---
ADMISSION DATE: 04/06/2019 DISCHARGE DATE: 04/09/2019 DISCHARGE DIAGNOSES: 1. Urinary tract infection/pyelonephritis. 2. Sepsis. 3. Hypertension. 4. Paroxysmal atrial fibrillation. 5. Asthma. 6. Chronic essential hypertension. CONSULTATIONS: Willian Perez and Norm Pillai MD OPERATIVE PROCEDURES: None. HOSPITAL COURSE: This is a 73-year-old white female was admitted overnight by the hospitalist team. She has been sick and running fever and was found to have urinary tract infection. She was also hypotensive and mildly hypoxic and was admitted to the hospital appropriately with a diagnosis of urinary tract infection/pyelonephritis and sepsis. The patient was pancultured and started on empiric antibiotics. The initial culture results grew back E coli. One blood culture had E coli in it. There was a slight resistance pattern to ampicillin and Augmentin, but otherwise the species was sensitive to all other antibiotics. The patient was aggressively hydrated, but continued to complain of not feeling well. She had some mild shortness of breath. At some point along day 2 the patient was noted to be in atrial fibrillation. She was given a dose of digoxin and converted. Dr. Pillai who was consulted and did a complete cardiology consultation including echocardiogram. Dr. Perez. I had originally thought the patient would end up on 6 weeks of IV antibiotics but at the time of discharge, the change his mind had prescribed oral Levaquin. DISCHARGE INSTRUCTIONS: She is to follow up with him in approximately 3 weeks. Cardiology team had made changes in the patient's medications and along with Dr. Salgado, they had changed her Cardizem for and they finally prescribed her Cardizem 120 mg twice daily, which seemed to keep her heart rate in check and keep her in a sinus rhythm. The patient was also started on Eliquis. She had no difficulty during that time and continued to show improvement. On the day of discharge, the patient's white cell count was down to just at 12,000. She is feeling much better. She was afebrile. Her heart rate was controlled. She was not hypoxemic. Her blood pressure had remained in the 150 to 160 range. I spoke briefly with Dr. Salgado prior to discharging the patient about blood pressure control issues. The patient had previously been on losartan hydrochlorothiazide. At the present time, we are going to treat the patient with just the Cardizem CD twice daily. If her pressure continues run up, she is aware that she can call the on-call doctor or arrange for followup next week with Dr. Salgado to finalize her blood pressure and heart rate control medications. She is also aware that she can start back on her losartan should her blood pressure remain up once she got home. She is advised to check the blood pressure frequently and to present that information to Dr. Salgado at the appropriate time. The patient is discharged in good control in good condition. She is eagerly looking forward to the time when she can go home. She is aware that she can call me at any time today or tomorrow should there be any problems. All prescriptions were called in. cc: MD Lucas Koroma MD
== END 2019-04-09 11:08 | disposition home or self-care (01) | DRG 872 ==
LOC: ED 17:45 → 3N 04-05 01:37 → SUATTDRO 04-05 01:37 → INTOOBSV 04-05 01:37 → 3N 04-05 02:11 → 3S 04-05 12:24
PROVIDERS: ADMIT Internal Medicine; ATTEND Internal Medicine
CPT/HCPCS: 71010; 71020; 71045; 71046; 74176; 80048; 80053; 81001; 82550; 82805; 83605; 83735; 84439; 84443; 84484; 85025; 85610; 85730; 87040; 87077; 87088; 87186; 87275; 87276; 87804; 93005; 93010; 93306; 94640; 94760; 94761; 94799; 96361; 96365; 96375; 97161; 97530; 99285; 99291; A9270; J0690; J0696; J1160; J1650; J1956; J2405; J2543; J7030